=== PATIENT | female | born 1995 | race Caucasian/White ===

== ENCOUNTER 2019-10-21 20:34 | Emergency (ER) | payer SELFPAY ==
[~2019-10-21] VITALS: Ht 175 cm; Wt 104.3 kg
[~2019-10-21 20:34] MED LIST: FLINTSTONE1 TAB.CHE4 PO; PREN1TAB71 PO
[2019-10-21 20:45] VITALS: BP 122/73
[2019-10-21] MEDS ORDERED: TETANUS,DIPTH,PERTUSS P/F (BOOSTRIX) 0.5 ML VIAL IM ONE (21:00)
--- OUTSIDE RECORDS SUMMARY | 2019-10-21 21:07 | XMS REPORT ---
Author Author Meg JOLLY [facility] Address [address] [place] [address] Care Team Providers Care Eligibility And Occupancy Interviewer Name Role Phone KYRIE JOLLY Unavailable PROBLEMS Type Condition ICD9-CM Code [id number] Code Onset Dates Condition S tatus SNOMED Code Problem General counseling for prescription of oral contraceptives V25.01 Active [id number] Problem Unspecified follow-up examination V67.9 Active 512333411 Problem Other, multiple, and unspeci fied sites, insect bite, nonvenomous, infected 919.5 Active 619633869 Problem Unspecified hypothyroidism 244.9 [place] 80949545 Problem Counseling on other sexually transmitted diseases V65.45 Active 062758178 Problem Dermatophytosis of the body 110.5 Ac tive 384944284 Problem Screening examination for venereal disease V74.5 Active 572130972 Problem Cellulitis and abscess of trunk 682.2 Active 720247491 Problem Urinary tract infection, site not specified 599.0 Active 70493666 Problem Dysthymic disorder 300.4 Active 7 1866882 Problem Other and unspecified hyperlipidemia 272.4 Active [id number] ALLERGIES No Information ENCOUNTERS Encounter Location Date Diagnosis [facility] [address] [facility] [id number] [place] [address] [id number] Mar, Routine gynecological examination V72.31 ; Encounter for Papanicolaou smear for cervical cancer screening Z12.4 ; Contraceptive management Z30.9 ; Screening for STD sexually transmitted disease Z11.3 ; Vaginosis N76.0 and Oth bacterial agents as the cause of diseases classd elswhr B96.89 [facility] [address] [facility] [id number] [address] [place] [address] Sep, [facility] [address] [facility] [id number] [address] [place] [address] Sep, [facility] [address] [id number] [address] [place] [address], [place] [address] Mar, [facility] [address] [id number] [address] [place] [address], [place] [address] Mar, [facility] [address] [id number] [address] [place] [address], [place] [address] Mar, [facility] [address] [id number] [address] [place] [address], [place] [address] Mar, [facility] [address] [id number] [address] [place] [address], [place] [address] Mar, [facility] [address] [id number] [address] [place] [address], [place] [address] 29 Feb, 2014 [facility] [address] [id number] [address] [place] [address], [place] [address] 29 Feb, 2013 [facility] [address] [id number] [address] [place] [address], [place] [address] Feb, 2013 [facility] [address] [id number] [address] [place] [address], [place] [address] Feb, [facility] [address] [id number] [address] [place] [address], [place] [address] Feb, [facility] [address] [id number] [address] [place] [address], [place] [address] Feb, [facility] [address] [id number] [address] [place] [address], [place] [address] 13 Dec, 2012 [facility] [address] [id number] [address] [place] [address], [place] [address] Dec, [facility] [address] [id number] [address] [place] [address], [place] [address] Dec, [facility] [address] [id number] [place] [id number] Nov, [facility] [address] [id number] [address] [place] [address], [place] [address] 13 Nov, 2012 [facility] [address] [id number] [address] [place] [address], [place] [address] 12 Nov, 2012 [facility] [address] [id number] [address] [place] [address], [place] [address] 11 Nov, 2012 [facility] [address] [id number] [address] [place] [address], [place] [address] Sep, [facility] [address] [id number] [address] [place] [address], [place] [address] 08 Aug, 2012 [facility] [address] [id number] [address] [place] [address], [place] [address] Aug, [facility] [address] [id number] [address] [place] [address], [place] [address] 18 Feb, 2012 [facility] [address] [id number] [place] [id number] Jan, [facility] [address] [id number] [address] [place] [address] Nov, [facility] [address] [id number] [address] [place] [address], [place] [address] Nov, [facility] [address] [id number] [address] [place] [address] May, [facility] [address] [id number] [address] [place] [address], [place] [address] Apr, [facility] [address] [id number] [address] [place] [address], [place] [address] Apr, [facility] [address] [id number] [address] [place] [address], [place] [address] 04 Apr, 2011 [facility] [address] [id number] [address] [place] [address], [place] [address] 14 Sep, 2010 [facility] [address] [id number] [address] [place] [address], [place] [address] 02 May, 2010 [facility] [address] [id number] [address] [place] [address] [place] [address] Apr, IMMUNIZATIONS No Known Immunizations SOCIAL HISTORY Never Assessed REASON FOR VISIT PLAN OF CARE VITAL SIGNS Height 68 in 2014-02-28 Weight 234.19 lbs 2014-02-28 Temperature 98.3 degrees Fahrenheit 2014-02-28 Heart Rate 72 bpm 2014-02-28 Respiratory Rate 12 2014-02-28 Blood pressure systolic 106 mmHg 2014-02-28 Blood pressure diastolic 74 mmHg 2014-02-28 MEDICATIONS No Known Medications RESULTS No Results PROCEDURES Procedure Date Ordered Result Body Site DRAINAGE OF SKIN ABSCESS Feb 28, 2014 INSTRUCTIONS MEDICATIONS ADMINISTERED No Known Medications MEDICAL (GENERAL) HISTORY Type Description Date Medical History Hypothyroidism Medical History hyperlipidemia Hospitalization History childbirth 2014
--- OUTSIDE RECORDS SUMMARY | 2019-10-21 21:07 | XMS REPORT ---
Author Author Meg MADDOX NA [facility] Organization [facility] Address [address] [place] [address] Care Team Providers Care Thermocouple Tester Name Role Phone DAVID AUGUSTEMICHELA Unavailable PROBLEMS Type Condition ICD9-CM Code [id number] Code Onset Dates Condition S tatus SNOMED Code Problem General counseling for prescription of oral contraceptives V25.01 Active [id number] Problem Unspecified follow-up examination V67.9 Active 648087902 Problem Other, multiple, and unspeci fied sites, insect bite, nonvenomous, infected 919.5 Active 910802963 Problem Unspecified hypothyroidism 244.9 [place] 39787327 Problem Counseling on other sexually transmitted diseases V65.45 Active 444127199 Problem Dermatophytosis of the body 110.5 Ac tive 454695139 Problem Screening examination for venereal disease V74.5 Active 105314221 Problem Cellulitis and abscess of trunk 682.2 Active 261623540 Problem Urinary tract infection, site not specified 599.0 Active 82895650 Problem Dysthymic disorder 300.4 Active 7 4425587 Problem Other and unspecified hyperlipidemia 272.4 Active 15176110 ALLERGIES No Information ENCOUNTERS Encounter Location Date Diagnosis [facility] [address] [facility] [id number] [place] [id number] Mar, Routine gynecological examination V72.31 ; Encounter for Papanicolaou smear for cervical cancer screening Z12.4 ; Contraceptive management Z30.9 ; Screening for STD sexually transmitted disease Z11.3 ; Vaginosis N76.0 and Oth bacterial agents as the cause of diseases classd elswhr B96.89 [facility] [address] [facility] [id number] [address] [place] [address] Sep, [facility] [address] [facility] [id number] [address] [place] [address] Sep, [facility] [address] [id number] [address] [place] [address], [place] [address] Mar, [facility] [address] [id number] [address] [place] [address], [place] [address] Mar, [facility] [address] [id number] [address] [place] [address], [place] [address] Mar, [facility] [address] [id number] [address] [place] [address], [place] [address] Mar, [facility] [address] [id number] [address] [place] [address], [place] [address] Mar, [facility] [address] [id number] [address] [place] [address], [place] [address] 29 Feb, 2014 [facility] [address] [id number] [address] [place] [address], [place] [address] 29 Feb, 2013 [facility] [address] [id number] [address] [place] [address], [place] [address] 27 Feb, 2013 [facility] [address] [id number] [address] [place] [address], [place] [address] 27 Feb, 2013 [facility] [address] [id number] [address] [place] [address], [place] [address] Feb, [facility] [address] [id number] [address] [place] [phone] Feb, 2013 [facility] [address] [id number] [address] [place] [address] Dec, [facility] [address] [id number] [address] [place] [address], [place] [address] Dec, [facility] [address] [id number] [address] [place] [address], [place] [address] Dec, [facility] [place] [address] [id number] [place] [id number] Nov, [facility] [address] [id number] [address] [place] [address], [place] [address] 13 Nov, 2012 [facility] [address] [id number] [address] [place] [address], [place] [address] 12 Nov, 2012 [facility] [address] [id number] [address] [place] [address], [place] [address] 11 Nov, 2012 [facility] [address] [id number] [address] [place] [address], [place] [address] 19 Sep, 2012 [facility] [address] [id number] [address] [place] [address], [place] [address] 08 Aug, 2012 [facility] [address] [id number] [address] [place] [address], [place] [address] Aug, [facility] [address] [id number] [address] [place] [address], [place] [address] Feb, [facility] [address] [id number] [place], [facility] [id number] Jan, [facility] [address] [id number] [address] [place] [address], [place] [address] Nov, [facility] [address] [id number] [address] [place] [address], [place] [address] Nov, [facility] [address] [id number] [address] [place] [address], [place] [address] May, [facility] [address] [id number] [address] [place] [address], [place] [address] Apr, [facility] [address] [id number] [address] [place] [address], [place] [address] Apr, [facility] [address] [id number] [address] [place] [address], [place] [address] 04 Apr, 2011 [facility] [address] [id number] [address] [place] [address], [place] [address] 14 Sep, 2010 [facility] [address] [id number] [address] [place] [address], [place] [address] 02 May, 2010 [facility] [address] [id number] [address] [place] [address] Apr, IMMUNIZATIONS No Known Immunizations SOCIAL HISTORY Never Assessed REASON FOR VISIT PLAN OF CARE VITAL SIGNS Height 68 in 2014-03-09 Weight 236 lbs 2014-03-09 Temperature 98.3 degrees Fahrenheit 2014-03-09 Heart Rate 80 bpm 2014-03-09 Respiratory Rate 18 2014-03-09 Blood pressure systolic 120 mmHg 2014-03-09 Blood pressure diastolic 68 mmHg 2014-03-09 MEDICATIONS No Known Medications RESULTS No Results PROCEDURES Procedure Date Ordered Result Body Site CULTURE, BACTERIA, OTHER Mar 09, 2014 INSTRUCTIONS MEDICATIONS ADMINISTERED No Known Medications MEDICAL (GENERAL) HISTORY Type Description Date Medical History Hypothyroidism Medical History hyperlipidemia Hospitalization History childbirth 2014
--- OUTSIDE RECORDS SUMMARY | 2019-10-21 21:07 | XMS REPORT ---
Author Author Meg ORTIZ [facility] Address [address] [place] [address] Care Team Providers Care Tube Winder Name Role Phone BIBI ORTIZ Unavailable PROBLEMS Type Condition ICD9-CM Code [id number] Code Onset Dates Condition S tatus SNOMED Code Problem General counseling for prescription of oral contraceptives V25.01 Active [id number] Problem Unspecified follow-up examination V67.9 Active 114701488 Problem Other, multiple, and unspeci fied sites, insect bite, nonvenomous, infected 919.5 Active 201350105 Problem Unspecified hypothyroidism 244.9 [place] 44025704 Problem Counseling on other sexually transmitted diseases V65.45 Active 116383055 Problem Dermatophytosis of the body 110.5 Ac tive 153056706 Problem Screening examination for venereal disease V74.5 Active 401488401 Problem Cellulitis and abscess of trunk 682.2 Active 402901405 Problem Urinary tract infection, site not specified 599.0 Active 36424683 Problem Dysthymic disorder 300.4 Active 7 9000285 Problem Other and unspecified hyperlipidemia 272.4 Active [id number] ALLERGIES No Information ENCOUNTERS Encounter Location Date Diagnosis [facility] [address] [facility] [id number] [place] [id number] Mar, Routine gynecological examination V72.31 ; Encounter for Papanicolaou smear for cervical cancer screening Z12.4 ; Contraceptive management Z30.9 ; Screening for STD sexually transmitted disease Z11.3 ; Vaginosis N76.0 and Oth bacterial agents as the cause of diseases classd elswhr B96.89 [facility] [address] [facility] [id number] [address] [place] [address] Sep, [facility] [address] [facility] [id number] [address] [place] [address] Sep, [facility] [address] [id number] [address] [place] [address], [place] [address] Mar, [facility] [address] [id number] [address] [place] [address], [place] [address] Mar, [facility] [address] [id number] [address] [place] [address], [place] [address] Mar, [facility] [address] [id number] [address] [place] [address], [place] [address] Mar, [facility] [address] [id number] [address] [place] [address], [place] [address] Mar, [facility] [address] [id number] [address] [place] [address], [place] [address] 29 Feb, 2014 [facility] [address] [id number] [address] [place] [address], [place] [address] 29 Feb, 2014 [facility] [address] [id number] [address] [place] [address], [place] [address] Feb, 2013 [facility] [address] [id number] [address] [place] [address], [place] [address] Feb, [facility] [address] [id number] [address] [place] [address], [place] [address] Feb, [facility] [address] [id number] [address] [place] [address], [place] [address] Feb, [facility] [address] [id number] [address] [place] [address], [place] [address] Dec, [facility] [address] [id number] [address] [place] [address], [place] [address] Dec, [facility] [address] [id number] [address] [place] [address], [place] [address] Dec, [facility] [address] [id number] [place] [id number] Nov, [facility] [address] [id number] [place] [address] 13 Nov, 2012 [facility] [address] [id number] [address] [place] [address], [place] [address] 12 Nov, 2012 [facility] [address] [id number] [address] [place] [address], [place] [address] 11 Nov, 2012 [facility] [address] [id number] [address] [place] [address], [place] [address] 19 Sep, 2012 [facility] [address] [id number] [address] [place] [address] 08 Aug, 2012 [facility] [address] [id number] [address] [place] [address], [place] [address] Aug, [facility] [address] [id number] [address] [place] [address] 18 Feb, 2012 [facility] [address] [facility] [address] [id number] [place], [facility] [id number] Jan, [facility] [address] [id number] [address] [place] [address] Nov, [facility] [address] [id number] [address] [place] [address], [place] [address] Nov, [facility] [address] [id number] [address] [place] [address] May, [facility] [address] [id number] [address] [place] [address] Apr, [facility] [address] [id number] [address] [place] [id number] 07 Apr, 2011 [facility] [address] [id number] [address] [place] [address], [place] [address] 04 Apr, 2011 [facility] [address] [id number] [address] [place] [address], [place] [address] 14 Sep, 2010 [facility] [address] [id number] [address] [place] [address], [place] [address] 02 May, 2010 [facility] [address] [id number] [address] [place] [address] Apr, IMMUNIZATIONS No Known Immunizations SOCIAL HISTORY Never Assessed REASON FOR VISIT PLAN OF CARE VITAL SIGNS MEDICATIONS No Known Medications RESULTS No Results PROCEDURES No Known procedures INSTRUCTIONS MEDICATIONS ADMINISTERED No Known Medications MEDICAL (GENERAL) HISTORY Type Description Date Medical History Hypothyroidism Medical History hyperlipidemia Hospitalization History childbirth 2014
--- OUTSIDE RECORDS SUMMARY | 2019-10-21 21:07 | XMS REPORT ---
Author Author Ivan Meg Doctor Organization [facility] Address Unknown Phone Unavailable Care Team Providers Care Assurance Engineer Name Role Phone Migration, Doctor Unavailable Unavailable PROBLEMS Type Condition ICD9-CM Code XOK98-MD Code Onset Dates Condition S tatus SNOMED Code Problem General counseling for prescription of oral contraceptives V25.01 Active [id number] Problem Unspecified follow-up examination V67.9 Active 131656628 Problem Other, multiple, and unspeci fied sites, insect bite, nonvenomous, infected 919.5 Active 477388430 Problem Unspecified hypothyroidism 244.9 [place] 73055523 Problem Counseling on other sexually transmitted diseases V65.45 Active 943697856 Problem Dermatophytosis of the body 110.5 Ac tive 130030429 Problem Screening examination for venereal disease V74.5 Active 037930127 Problem Cellulitis and abscess of trunk 682.2 Active 551711052 Problem Urinary tract infection, site not specified 599.0 Active 37324247 Problem Dysthymic disorder 300.4 Active 7 4285994 Problem Other and unspecified hyperlipidemia 272.4 Active 98821009 ALLERGIES No Information ENCOUNTERS Encounter Location Date Diagnosis [facility] [address] [facility] [id number] [place] [address] [id number] 29 Mar, 2015 Routine gynecological examination V72.31 ; Encounter for Papanicolaou smear for cervical cancer screening Z12.4 ; Contraceptive management Z30.9 ; Screening for STD sexually transmitted disease Z11.3 ; Vaginosis N76.0 and Oth bacterial agents as the cause of diseases classd elswhr B96.89 [facility] [address] [facility] [id number] [address] [place] [address] 14 Sep, 2014 [facility] [address] [facility] [id number] [address] [place] [address] Sep, [facility] [address] [facility] [id number] [address] [place] [address] Mar, [facility] [address] [id number] [address] [place] [address], [place] [address] Mar, [facility] [address] [id number] [address] [place] [address], [place] [address] Mar, [facility] [address] [id number] [address] [place] [address], [place] [address] Mar, [facility] [address] [id number] [address] [place] [address], [place] [address] Mar, [facility] [address] [id number] [address] [place] [address], [place] [address] Feb, [facility] [address] [id number] [address] [place] [address], [place] [address] 29 Feb, 2014 [facility] [address] [id number] [address] [place] [address], [place] [address] Feb, [facility] [address] [id number] [address] [place] [address], [place] [address] Feb, [facility] [address] [id number] [address] [place] [address], [place] [address] Feb, [facility] [address] [id number] [address] [place] [address], [place] [address] Feb, [facility] [address] [id number] [address] [place] [address], [place] [address] Dec, [facility] [address] [id number] [address] [place] [address], [place] [address] Dec, [facility] [address] [id number] [address] [place] [address], [place] [address] Dec, [facility] [address] [id number] [place] [id number] 17 Nov, 2012 [facility] [address] [id number] [address] [place] [address], [place] [address] 13 Nov, 2012 [facility] [address] [id number] [address] [place] [address] Nov, [facility] [address] [id number] [address] [place] [address] Nov, [facility] [address] [id number] [address] [place] [address] Sep, [facility] [address] [id number] [address] [place] [address] Aug, [facility] [address] [id number] [address] [place] [address] Aug, [facility] [address] [id number] [address] [place] [address] Feb, [place] [address] [id number] [place] [id number] Jan, [facility] [address] [id number] [address] [place] [address] Nov, [facility] [address] [id number] [address] [place] [address] Nov, [facility] [address] [id number] [address] [place] [address] May, [facility] [address] [id number] [address] [place] [address] Apr, [facility] [address] [id number] [address] [place] [address] Apr, [facility] [address] [id number] [address] [place] [address] Apr, [facility] [address] [id number] [address] [place] [address] 14 Sep, 2010 [facility] [address] [id number] [address] [place] [address] May, [facility] [address] [id number] [address] [place] [address] Apr, IMMUNIZATIONS No Known Immunizations SOCIAL HISTORY Never Assessed REASON FOR VISIT PLAN OF CARE VITAL SIGNS Height 68 in 2011-11-16 Weight 223.5 lbs 2011-11-16 Temperature 96 degrees Fahrenheit 2011-11-16 Heart Rate 80 bpm 2011-11-16 Respiratory Rate 20 2011-11-16 Blood pressure systolic 128 mmHg 2011-11-16 Blood pressure diastolic 70 mmHg 2011-11-16 MEDICATIONS No Known Medications RESULTS No Results PROCEDURES Procedure Date Ordered Result Body Site CHYLMD TRACH, DNA, AMP PROBE November 16, 2011 GLYCATED HEMOGLOBIN TEST November 16, 2011 URINE TEST November 16, 2011 INSTRUCTIONS MEDICATIONS ADMINISTERED No Known Medications MEDICAL (GENERAL) HISTORY Type Description Date Medical History Hypothyroidism Medical History hyperlipidemia Hospitalization History childbirth 2014
--- OUTSIDE RECORDS SUMMARY | 2019-10-21 21:07 | XMS REPORT ---
Author Author Meg JOLLY [facility] Address [address] [place] [address] Care Team Providers Care Contractor Buyer Name Role Phone KYRIE JOLLY Unavailable PROBLEMS Type Condition ICD9-CM Code IKO84-MC Code Onset Dates Condition S tatus SNOMED Code Problem General counseling for prescription of oral contraceptives V25.01 Active [id number] Problem Unspecified follow-up examination V67.9 Active 978293588 Problem Other, multiple, and unspeci fied sites, insect bite, nonvenomous, infected 919.5 Active 321309630 Problem Unspecified hypothyroidism 244.9 [place] 45894323 Problem Counseling on other sexually transmitted diseases V65.45 Active 790516634 Problem Dermatophytosis of the body 110.5 Ac tive 218016587 Problem Screening examination for venereal disease V74.5 Active 505133981 Problem Cellulitis and abscess of trunk 682.2 Active 881481812 Problem Urinary tract infection, site not specified 599.0 Active 24385332 Problem Dysthymic disorder 300.4 Active 7 1690185 Problem Other and unspecified hyperlipidemia 272.4 Active 46730495 ALLERGIES No Information ENCOUNTERS Encounter Location Date Diagnosis [facility] [address] [facility] [id number] [place] [id number] Mar, Routine gynecological examination V72.31 ; Encounter for Papanicolaou smear for cervical cancer screening Z12.4 ; Contraceptive management Z30.9 ; Screening for STD sexually transmitted disease Z11.3 ; Vaginosis N76.0 and Oth bacterial agents as the cause of diseases classd elswhr B96.89 [facility] [address] [facility] [id number] [address] [place] [address] Sep, [facility] [address] [facility] [id number] [address] [place] [address] Sep, [facility] [address] [id number] [address] [place] [address], [place] [address] Mar, [facility] [address] [id number] [address] [place] [address], [place] [address] Mar, [facility] [address] [id number] [address] [place] [address], [place] [address] Mar, [facility] [address] [id number] [address] [place] [address], [place] [address] Mar, [facility] [address] [id number] [address] [place] [address], [place] [address] Mar, [facility] [address] [id number] [address] [place] [address], [place] [address] 29 Feb, 2014 [facility] [address] [id number] [address] [place] [address], [place] [address] 29 Feb, 2013 [facility] [address] [id number] [address] [place] [address], [place] [address] Feb, 2013 [facility] [address] [id number] [address] [place] [address], [place] [address] Feb, [facility] [address] [id number] [address] [place] [address], [place] [address] Feb, [facility] [address] [id number] [address] [place] [address], [place] [address] Feb, [facility] [address] [id number] [address] [place] [address], [place] [address] 13 Dec, 2012 [facility] [address] [id number] [address] [place] [address], [place] [address] Dec, [facility] [address] [id number] [address] [place] [address], [place] [address] Dec, [facility] [address] [id number] [place] [id number] Nov, [facility] [address] [id number] [address] [place] [address], [place] [address] 13 Nov, 2012 [facility] [address] [id number] [address] [place] [address], [place] [address] 12 Nov, 2012 [facility] [address] [id number] [address] [place] [address], [place] [address] 11 Nov, 2012 [facility] [address] [id number] [address] [place] [address], [place] [address] Sep, [facility] [address] [id number] [address] [place] [address], [place] [address] 08 Aug, 2012 [facility] [address] [id number] [address] [place] [address], [place] [address] Aug, [facility] [address] [id number] [address] [place] [address], [place] [address] 18 Feb, 2012 [facility] [address] [id number] [place] [id number] Jan, [facility] [address] [id number] [address] [place] [address] Nov, [facility] [address] [id number] [address] [place] [address], [place] [address] Nov, [facility] [address] [id number] [address] [place] [address] May, [facility] [address] [id number] [address] [place] [address], [place] [address] Apr, [facility] [address] [id number] [address] [place] [address], [place] [address] Apr, [facility] [address] [id number] [address] [place] [address], [place] [address] 04 Apr, 2011 [facility] [address] [id number] [address] [place] [address], [place] [address] 14 Sep, 2010 [facility] [address] [id number] [address] [place] [address], [place] [address] 02 May, 2010 [facility] [address] [id number] [address] [place] [address] [place] [address] Apr, IMMUNIZATIONS No Known Immunizations SOCIAL HISTORY Never Assessed REASON FOR VISIT PLAN OF CARE VITAL SIGNS MEDICATIONS No Known Medications RESULTS No Results PROCEDURES Procedure Date Ordered Result Body Site COMPLETE CBC W/AUTO DIFF WBC December 13, 2012 ASSAY THYROID STIM HORMONE December 13, 2012 GLYCATED HEMOGLOBIN TEST December 13, 2012 LIPID PANEL December 13, 2012 COMPREHEN METABOLIC PANEL December 13, 2012 VENIPUNCT, ROUTINE* December 13, 2012 INSTRUCTIONS MEDICATIONS ADMINISTERED No Known Medications MEDICAL (GENERAL) HISTORY Type Description Date Medical History Hypothyroidism Medical History hyperlipidemia Hospitalization History childbirth 2014
--- NOTE | 2019-10-21 21:08 | ED Upper Extremity ---
General Chief Complaint: Laceration Stated Complaint: R INDEX FINGER LAC Nursing Triage Note: PATIENT STATES AT 2014 SHE WAS ATTEMPTING TO OPEN A ZIP TIE WITH A STEAK KNIFE AND FUT HER RIGHT 2ND FINGER. Nursing Sepsis Screen: No Definite Risk History of Present Illness Date Seen by Provider: October 21, 2019 Time Seen by Provider: 20:50 Initial Comments 24-year-old female was cutting a zip tie with a steak knife when she caused an abrasion to her right second finger over the middle phalanx. She reports significant bleeding and came here. Has washed it thoroughly. Onset: just prior to arrival Pain/Injury Location: right 2nd finger Method of Injury: incised Modifying Factors: Improves With Rest Allergies and Home Medications Allergies Coded Allergies: No Known Drug Allergies (Unverified , 10/21/19) Home Medications Multivitamins W-Iron 1 Tab.chew Tab.chew, 1 TAB.CHEW PO DAILY, (Reported) Patient Home Medication List Home Medication List Reviewed: Yes Review of Systems Constitutional: no symptoms reported, see HPI Skin: see HPI, other (abrasion right index finger) All Other Systems Reviewed Negative Unless Noted: Yes Past Qsmcsgt-Dwolbj-Dbaetl Hx Past Med/Social Hx: Reviewed Nursing Past Med/Soc Hx Patient Social History Alcohol Use: Denies Use Recreational Drug Use: No Smoking Status: Current Everyday Smoker Recent Foreign Travel: No Contact w/Someone Who Travel: No Recent Infectious Disease Expo: No Recent Hopitalizations: No Physical Abuse: No Sexual Abuse: No Mistreated: No Fear: No Immunizations Up To Date Tetanus Booster (TDap): More than 5yrs PED Vaccines UTD: Yes Date of Influenza Vaccine: Mar 04, 2014 Seasonal Allergies Seasonal Allergies: No Past Medical History Surgeries: Yes Section, Gallbladder Respiratory: Yes Asthma Cardiac: No Neurological: No : No Last Menstrual Period: October 20, 2019 Genitourinary: No Gastrointestinal: No Musculoskeletal: No Endocrine: Yes Hypothyroidsim HEENT: No Cancer: No Anxiety Integumentary: No Physical Exam Vital Signs Vital Signs - First Documented 10/21/19 20:45 Temp 36.0 Pulse 82 Resp 18 B/P (MAP) 122/73 (89) O2 Delivery Room Air Capillary Refill : Less Than 3 Seconds Height, Weight, BMI Height: 5'8.00" Weight: 229lbs. oz. 103.596482sw; 34.00 BMI Method: General Appearance: WD/WN, no apparent distress Cardiovascular: normal peripheral pulses, regular rate, rhythm Respiratory: chest non-tender, lungs clear, normal breath sounds Gastrointestinal: normal bowel sounds, non tender, soft Hand: normal ROM (Resisted flex/ext V/V), Right, abrasions (dorsum, right index finger over the middle phalanx, no bleeding. ) Neurologic/Tendon: normal sensation, normal motor functions, normal tendon functions Neurologic/Psychiatric: no motor/sensory deficits, alert, normal mood/affect, oriented x 3 Skin: normal color, warm/dry Progress/Results/Core Measures Results/Orders My Orders Orders - YUSEF GERMAN Dipht,Pertuss(Acell),Tet Adult (Boostrix (10/21/19 21:00) Vital Signs/I&O 10/21/19 20:45 Temp 36.0 Pulse 82 Resp 18 B/P (MAP) 122/73 (89) O2 Delivery Room Air Blood Pressure Mean: 89 Progress Progress Note : Time: 20:50 Progress Note Patient seen and evaluated, wound irrigated with soap and water. Thoroughly dried and Steri-Strips in place. Wound well approximated with no bleeding. Discharge instructions and return precautions reviewed. Departure Impression Primary Impression: Abrasion of right index finger Qualified Codes: S60.410A - Abrasion of right index finger, initial encounter Disposition: 01 HOME, SELF-CARE Condition: Improved Departure-Patient Inst. Decision time for Depature: 21:05 Referrals: [facility] [place],LOCAL PHYSICIAN (PCP) Primary Care Physician Patient Instructions: Skin Abrasions (DC) Add. Discharge Instructions: Keep wound clean and dry for 24 hours. Reapply Steri-Strips as needed. After 24 hours you May cover with a Band-Aid. Follow-up with your primary care provider if symptoms are not improving or worsen. Return to the emergency department for new, urgent health care problems. All discharge instructions reviewed with patient and/or family. Voiced understanding. YUSEF GERAMN October 21, 2019 21:08
--- OUTSIDE RECORDS SUMMARY | 2019-10-21 21:08 | XMS REPORT ---
Author Meg Centeno [facility] eClinicalWorks Address Unknown Phone Unavailable Care Team Providers Care Cad Designer Drafter Name Role Phone LANE VELIZ Unavailable Allergies, Adverse Reactions, Alerts Substance Reaction Event Type N.K.D.A. Info Not Available Non Drug Allergy Problems Problem Type Condition Code Onset Dates Condition Statu s Problem Unspecified hypothyroidism 244.9 A ctive Problem Cellulitis and abscess of trunk 682.2 Active Problem Other and unspecified hyperlipidemia 272.4 Active Problem Unspecified follow-up examination V67.9 Active Problem Counseling on other sexually transmitted diseases V65. 45 Active Problem Urinary tract infection, site not specified 599.0 Active Problem Dysthymic disorder 300.4 Active Problem Dermatophytosis of the body 110.5 Active Problem General counseling for prescription of oral contracept noel V25.01 Active Problem Screening examination for venereal disease V74.5 Active Assessment Oth bacterial agents as the cause of diseases classd e lswhr B96.89 Active Assessment Contraceptive management Z30.9 [place] Assessment Encounter for Papanicolaou smear for cervical ca ncer screening Z12.4 Active Assessment Vaginosis N76.0 Active Assessment Routine gynecological examination V72.31 Active Assessment Screening for STD (sexually transmitted disease) Z11.3 Active Problem Other, multiple, and unspeci fied sites, insect bite, nonvenomous, infected 919.5 Active Medications Medication Code System Code Instructions Start Date End Date Status Dosage Levothyroxine Sodium [facility] [address]-80 112 MCG Orally Once a day 1 tablet NuvaRing [facility] [address]-17 0.12-0.015 MG/24 HR Vaginal for 3 weeks then remove ring for 1 week Apr 01, 2015 1 ring Flagyl [facility] [address]-51 500 MG Orally every 8 hrs Apr 01, 2015 Apr 08, 2015 1 tablet Procedures Procedure Coding System Code Date CULTURE, BACTERIA, OTHER CPT-4 40348 Apr 01, 2015 SPECIMEN HANDLING CPT-4 80061 Apr 01, 2015 No Charge CPT-4 71152 Apr 01, 2015 URINE TEST CPT-4 90668 Apr 01, 201 5 TRICHOMONAS VAGIN, DIR PROBE CPT-4 40211 Apr 01, 2015 Preventive Care New Pt. Age 18-39 CPT-4 35914 Apr 01, 2015 Vital Signs Date/Time: Apr 01, 2015 Temperature 98.1 F Weight 221.6 lbs Height 68 in BMI 33.69 Index Blood Pressure Diastolic 86 mmHg Blood Pressure Systolic 116 mmHg Cardiac Monitoring Heart Rate 88 bpm Results Name Result Date Reference Range Unit Abnormali ty Flag GC/CHLAM PROBE (STATE) TEST, URINE (IN HOUSE) CULTURE, GENITAL Summary Purpose eClinicalWorks Submission
--- OUTSIDE RECORDS SUMMARY | 2019-10-21 21:08 | XMS REPORT ---
Author Author Meg MADDOX NA [facility] Organization [facility] Address [address] [place] [address] Care Team Providers Care It Project Manager Name Role Phone DAVID AUGUSTEMICHELA Unavailable PROBLEMS Type Condition ICD9-CM Code GSW24-QT Code Onset Dates Condition S tatus SNOMED Code Problem General counseling for prescription of oral contraceptives V25.01 Active 853455983389450 Problem Unspecified follow-up examination V67.9 Active 981385205 Problem Other, multiple, and unspeci fied sites, insect bite, nonvenomous, infected 919.5 Active 584992125 Problem Unspecified hypothyroidism 244.9 [place] 35120336 Problem Counseling on other sexually transmitted diseases V65.45 Active 727227326 Problem Dermatophytosis of the body 110.5 Ac tive 177476684 Problem Screening examination for venereal disease V74.5 Active 243701729 Problem Cellulitis and abscess of trunk 682.2 Active 198683937 Problem Urinary tract infection, site not specified 599.0 Active 50934246 Problem Dysthymic disorder 300.4 Active 7 5623376 Problem Other and unspecified hyperlipidemia 272.4 Active 80806223 ALLERGIES No Information ENCOUNTERS Encounter Location Date Diagnosis [facility] [address] [id number] [id number] Mar, Routine gynecological examination V72.31 ; Encounter for Papanicolaou smear for cervical cancer screening Z12.4 ; Contraceptive management Z30.9 ; Screening for STD sexually transmitted disease Z11.3 ; Vaginosis N76.0 and Oth bacterial agents as the cause of diseases classd elswhr B96.89 [facility] [address] [facility] [id number] [address] [place] [address] Sep, [facility] [address] [facility] [id number] [address] [place] [address] Sep, [facility] [address] [id number] [address] [place] [address], [place] [address] Mar, [facility] [address] [id number] [address] [place] [address], [place] [address] Mar, [facility] [address] [id number] [address] [place] [address], [place] [address] Mar, [facility] [address] [id number] [address] [place] [address] Mar, [facility] [address] [id number] [address] [place] [address], [place] [address] Mar, [facility] [address] [id number] [address] [place] [address] 29 Feb, 2014 [facility] [address] [id number] [address] [place] [address], [place] [address] 29 Feb, 2014 [facility] [address] [id number] [address] [place] [address], [place] [address] 27 Feb, 2014 [facility] [address] [id number] [address] [place] [address], [place] [address] Feb, [facility] [address] [id number] [address] [place] [address], [place] [address] Feb, [facility] [address] [id number] [address] [place] [address] Feb, 2013 [facility] [address] [id number] [address] [place] [address] Dec, [facility] [address] [id number] [address] [place] [address] Dec, [facility] [address] [id number] [address] [place] [address] Dec, [facility] [address] [id number] [place] [id number] Nov, [facility] [address] [id number] [address] [place] [address], [place] [address] 13 Nov, 2012 [facility] [address] [id number] [address] [place] [address], [place] [address] 12 Nov, 2012 [facility] [address] [id number] [address] [place] [address], [place] [address] 11 Nov, 2012 [facility] [address] [id number] [address] [place] [address], [place] [address] 19 Sep, 2012 [facility] [address] [id number] [address] [place] [address], [place] [address] 08 Aug, 2012 [facility] [address] [id number] [address] [place] [address], [place] [address] 05 Aug, 2012 [facility] [address] [id number] [address] [place] [address], [place] [address] 18 Feb, [address] [facility] [address] [id number] [place], [facility] [id number] Jan, [facility] [address] [id number] [address] [place] [address], [place] [address] Nov, [facility] [address] [id number] [address] [place] [address], [place] [address] 14 Nov, 2011 [facility] [address] [id number] [address] [place] [address], [place] [address] May, [facility] [address] [id number] [address] [place] [address], [place] [address] 23 Apr, 2011 [facility] [address] [id number] [address] [place] [address], [place] [address] Apr, [facility] [address] [id number] [address] [place] [address], [place] [address] 04 Apr, 2011 [facility] [address] [id number] [address] [place] [address], [place] [address] 14 Sep, 2010 [facility] [address] [id number] [address] [place] [address], [place] [address] 02 May, 2010 [facility] [address] [facility] [id number] [address] [place] [address] Apr, IMMUNIZATIONS No Known Immunizations SOCIAL HISTORY Never Assessed REASON FOR VISIT PLAN OF CARE VITAL SIGNS Height 68 in 2014-03-02 Weight 233.3 lbs 2014-03-02 Temperature 97.9 degrees Fahrenheit 2014-03-02 Heart Rate 74 bpm 2014-03-02 Respiratory Rate 16 2014-03-02 Blood pressure systolic 108 mmHg 2014-03-02 Blood pressure diastolic 66 mmHg 2014-03-02 MEDICATIONS No Known Medications RESULTS No Results PROCEDURES No Known procedures INSTRUCTIONS MEDICATIONS ADMINISTERED No Known Medications MEDICAL (GENERAL) HISTORY Type Description Date Medical History Hypothyroidism Medical History hyperlipidemia Hospitalization History childbirth 2014
--- OUTSIDE RECORDS SUMMARY | 2019-10-21 21:08 | XMS REPORT | Continuity of Care Document ---
Author Organization Unknown Address Unknown Phone Unavailable Allergies There is no data. Medications There is no data. Problems Date Dx Coded Attending Type Code Diagnosis Diagnosed By 01/04/2009 V25.9 Gyne cologic Services Contraceptive Management 01/04/2009 V72.31 Pel judith Exam (Internal) 01/04/2009 V25.9 Gyne cologic Services Contraceptive Management 01/04/2009 V72.31 Pel judith Exam (Internal) 01/04/2009 V25.9 Gyne cologic Services Contraceptive Management 01/04/2009 V72.31 Pel judith Exam (Internal) 01/04/2009 KYRIE JOLLY APRN V2 5.9 Gynecologic Services Contraceptive Management 01/04/2009 KYRIE JOLLY APRN V72.31 Pelvic Exam (Internal) 01/04/2009 ARIC PEREZ DO V25.9 Gynecologic Services Contraceptive Management 01/04/2009 ARIC PEREZ DO V72.31 Pelvic Exam (Internal) 01/04/2009 MICHELA CASTILLO APRN N V25.9 Gynecologic Services Contraceptive Management 01/04/2009 MICHELA CASTILLO APRN N V72.31 Pelvic Exam (Internal) 01/04/2009 ARIC PEREZ DO V25.9 Gynecologic Services Contraceptive Management 01/04/2009 ARIC PEREZ DO V72.31 Pelvic Exam (Internal) 02/04/2010 V25.02 GEN ERAL COUNSELING AND ADVICE, INITIATION OF OTHER CONTRACEPTIVE MEASURES 02/04/2010 V25.40 vis it for: contraceptive surveillance 02/04/2010 V25.02 GEN ERAL COUNSELING AND ADVICE, INITIATION OF OTHER CONTRACEPTIVE MEASURES 02/04/2010 V25.40 vis it for: contraceptive surveillance 02/04/2010 V25.02 GEN ERAL COUNSELING AND ADVICE, INITIATION OF OTHER CONTRACEPTIVE MEASURES 02/04/2010 V25.40 vis it for: contraceptive surveillance 02/04/2010 KYRIE JOLLY APRN V25.02 GENERAL COUNSELING AND ADVICE, INITIATIO N OF OTHER CONTRACEPTIVE MEASURES 02/04/2010 KYRIE JOLLY APRN L V25.40 visit for: contraceptive surveillance 02/04/2010 ANTHONY PEREZ DOA K V25.02 GENERAL COUNSELING AND ADVICE, INITIATION OF OTHER CONTRACEPTIVE MEASURES 02/04/2010 ANTHONY PEREZ DOA K V25.40 visit for: contraceptive surveillance 02/04/2010 HOWARDMICHELA ATKINS APRN N V25.02 GENERAL COUNSELING AND ADVICE, INITIATIO N OF OTHER CONTRACEPTIVE MEASURES 02/04/2010 MICHELA CASTILLO APRN N V25.40 visit for: contraceptive surveillance 02/04/2010 ANTHONY PEREZ DOA K V25.02 GENERAL COUNSELING AND ADVICE, INITIATION OF OTHER CONTRACEPTIVE MEASURES 02/04/2010 ANTHONY PEREZ DOA K V25.40 visit for: contraceptive surveillance 04/07/2011 278.00 OBESITY 04/07/2011 300.00 anxiety 04/07/2011 493.90 AST HMA EXERCISE- INDUCED 04/07/2011 278.00 OBESITY 04/07/2011 300.00 anxiety 04/07/2011 493.90 AST HMA EXERCISE- INDUCED 04/07/2011 278.00 OBESITY 04/07/2011 300.00 anxiety 04/07/2011 493.90 AST HMA EXERCISE- INDUCED 04/07/2011 EATCHRISTI AGUDELO, KYRIE L 278.00 OBESITY 04/07/2011 SHANAE AGUDELO, KYRIE L 300.00 anxiety 04/07/2011 SHANAE AGUDELO, KYRIE L 493.90 ASTHMA EXERCISE-INDUCED 04/07/2011 PEREZ DO ARIC K 278.00 OBESITY 04/07/2011 ANA GONZALEZ ARIC K 300.00 anxiety 04/07/2011 ANA GONZALEZ ARIC K 493.90 ASTHMA EXERCISE-INDUCED 04/07/2011 ANITA AUGUSTE APRN MICHELA N 278.00 OBESITY 04/07/2011 ANITA AUGUSTE APRN MICHELA N 300.00 anxiety 04/07/2011 ANITA ROLONERO JAMMIE, MICHELA N 493.90 ASTHMA EXERCISE-INDUCED 04/07/2011 ANA GONZALEZ ARIC K 278.00 OBESITY 04/07/2011 PEREZ DO ARIC K 300.00 anxiety 04/07/2011 PEREZ DO ARIC K 493.90 ASTHMA EXERCISE-INDUCED 11/16/2011 V25.01 CON TRACEPTION - ORAL CONTRACEPTION 11/16/2011 V74.5 STD SCREEN 11/16/2011 V25.01 CON TRACEPTION - ORAL CONTRACEPTION 11/16/2011 V74.5 STD SCREEN 11/16/2011 V25.01 CON TRACEPTION - ORAL CONTRACEPTION 11/16/2011 V74.5 visi t for: screening exam bact/spirochetal STD 11/16/2011 KYRIE JOLLY APRN V25.01 CONTRACEPTION - ORAL CONTRACEPTION 11/16/2011 KYRIE JOLLY APRN V7 4.5 visit for: screening exam bact/spirochetal STD 11/16/2011 ARIC PEREZ DO K V25.01 CONTRACEPTION - ORAL CONTRACEPTION 11/16/2011 ARIC PEREZ DO V74.5 visit for: screening exam bact/spirochetal STD 11/16/2011 MICHELA CASTILLO APRN N V25.01 CONTRACEPTION - ORAL CONTRACEPTION 11/16/2011 MICHELA CASTILLO APRN V74.5 visit for: screening exam bact/spirochetal STD 11/16/2011 ARCI PEREZ DO V25.01 CONTRACEPTION - ORAL CONTRACEPTION 11/16/2011 ARIC PEREZ DO V74.5 visit for: screening exam bact/spirochetal STD 02/20/2012 300.4 DEPR ESSION WITH ANXIETY 02/20/2012 300.4 DEPR ESSION WITH ANXIETY 02/20/2012 300.4 DEPR ESSION WITH ANXIETY 02/20/2012 KYRIE JOLLY APRN 30 0.4 DEPRESSION WITH ANXIETY 02/20/2012 ARIC PEREZ DO K 300.4 DEPRESSION WITH ANXIETY 02/20/2012 MICHELA CASTILLO APRN N 300.4 DEPRESSION WITH ANXIETY 02/20/2012 ARIC PEREZ DO K 300.4 DEPRESSION WITH ANXIETY 08/06/2012 599.0 URIN JESSIE TRACT INFECTION 08/06/2012 599.0 URIN JESSIE TRACT INFECTION 08/06/2012 599.0 URIN JESSIE TRACT INFECTION 08/06/2012 KYRIE JOLLY APRN 59 9.0 URINARY TRACT INFECTION 08/06/2012 ARIC PEREZ DO 599.0 URINARY TRACT INFECTION 08/06/2012 MICHELA CASTILLO APRN N 599.0 URINARY TRACT INFECTION 08/06/2012 ARIC PEREZ DO 599.0 URINARY TRACT INFECTION 09/20/2012 110.5 DERM ATOPHYTOSIS TINEA CORPORIS 09/20/2012 110.5 DERM ATOPHYTOSIS TINEA CORPORIS 09/20/2012 KYRIE JOLLY APRN 11 0.5 DERMATOPHYTOSIS TINEA CORPORIS 09/20/2012 ARIC PEREZ DO K 110.5 DERMATOPHYTOSIS TINEA CORPORIS 09/20/2012 MICHELA CASTILLO APRN N 110.5 DERMATOPHYTOSIS TINEA CORPORIS 09/20/2012 ANTHONY PEREZ DOA K 110.5 DERMATOPHYTOSIS TINEA CORPORIS 11/13/2012 V65.45 STD COUNSELING 11/13/2012 KYRIE JOLLY APRN L V65.45 STD COUNSELING 11/13/2012 ANTHONY PEREZ DOA K V65.45 STD COUNSELING 11/13/2012 MICHELA CASTILLO APRN N V65.45 STD COUNSELING 11/13/2012 ANTHONY PEREZ DOA K V65.45 STD COUNSELING 02/28/2014 ARIC PEREZ DO K 244.9 HYPOTHYROIDISM, SUBCLINICAL 02/28/2014 ARIC PEREZ DO K 272.4 HYPERLIPIDEMIA 02/28/2014 ANTHONY PEREZ DOA K 682.2 CELLULITIS AND ABSCESS OF TRUNK 02/28/2014 MICHELA CASTILLO APRN N 244.9 HYPOTHYROIDISM, SUBCLINICAL 02/28/2014 RYAN CASTILLO APRNCY N 272.4 HYPERLIPIDEMIA 02/28/2014 RYAN CASTILLO APRNCY N 682.2 CELLULITIS AND ABSCESS OF TRUNK 02/28/2014 ANTHONY PEREZ DOA K 244.9 HYPOTHYROIDISM, SUBCLINICAL 02/28/2014 ANTHONY PEREZ DOA K 272.4 HYPERLIPIDEMIA 02/28/2014 ANTHONY PEREZ DOA K 682.2 CELLULITIS AND ABSCESS OF TRUNK 03/02/2014 RYAN CASTILLO APRNCY N 919.5 INSECT BITE NONVENOMOUS OF OTHER MULTIPL E AND UNSPECIFIED SITES INFECTED 03/02/2014 ARIC PEREZ DO K 919.5 INSECT BITE NONVENOMOUS OF OTHER MULTIPLE AND UNSPECIFIED SITES INFECTED 03/09/2014 ARIC PEREZ DO K V67.9 UNSPECIFIED FOLLOW-UP EXAMINATION Procedures Code Description [place] [address] UA L SELENE DIP 08/06/2012 25898 CULT URE URINE 08/06/2012 46816 URIN E TEST (IN- HOUSE) 11/13/2012 27588 TRIC HOMONAS (IN-HOUSE) 11/13/2012 48446 CHLA MYDIA PROBE/URINE 11/13/2012 17007 GC P ROBE/URINE 11/13/2012 43119 MARYAM LOMELI OF SKIN ABSCESS 02/28/2014 70016 CULT URE WOUND (AEROBIC) 03/10/2014 Results There is no data. Encounters ACCT No. Visit Date/Time Discharge Status Pt. Type Provider Facility Loc./Unit Complaint [id number] 03/09/2014 15:28:00 03/09/2014 23:59: 59 CLS Outpatient ARIC PEREZ DO [id number] 03/02/2014 13:53:00 03/02/2014 23:59: 59 CLS Outpatient MICHELA CASTILLO APRN [id number] 02/28/2014 13:04:00 02/28/2014 23:59: 59 CLS Outpatient ARIC PEREZ DO [id number] 12/12/2012 15:37:00 12/12/2012 23:59: 59 CLS Outpatient KYRIE JOLLY APRN [id number] 08/06/2012 15:23:00 08/06/2012 23:59: 59 CLS Outpatient [id number] 11/13/2012 08:31:00 Document Registration [id number] 09/20/2012 15:43:00 Document Registration
--- OUTSIDE RECORDS SUMMARY | 2019-10-21 21:08 | XMS REPORT ---
Author Author Ivan Meg Doctor Organization [facility] Address Unknown Phone Unavailable Care Team Providers Care Typecasting Machine Operator Name Role Phone Migration, Doctor Unavailable Unavailable PROBLEMS Type Condition ICD9-CM Code DTG17-QD Code Onset Dates Condition S tatus SNOMED Code Problem General counseling for prescription of oral contraceptives V25.01 Active 456834882101995 Problem Unspecified follow-up examination V67.9 Active 577354744 Problem Other, multiple, and unspeci fied sites, insect bite, nonvenomous, infected 919.5 Active 865790978 Problem Unspecified hypothyroidism 244.9 Act [place] 25208687 Problem Counseling on other sexually transmitted diseases V65.45 Active 096144144 Problem Dermatophytosis of the body 110.5 Ac tive 834661769 Problem Screening examination for venereal disease V74.5 Active 054120070 Problem Cellulitis and abscess of trunk 682.2 Active 934997592 Problem Urinary tract infection, site not specified 599.0 Active 24718385 Problem Dysthymic disorder 300.4 Active 7 4848496 Problem Other and unspecified hyperlipidemia 272.4 Active 40405062 ALLERGIES No Information ENCOUNTERS Encounter Location Date Diagnosis [facility] [address] [facility][1] [id number] [place] [id number] Mar, Routine gynecological examination V72.31 ; Encounter for Papanicolaou smear for cervical cancer screening Z12.4 ; Contraceptive management Z30.9 ; Screening for STD sexually transmitted disease Z11.3 ; Vaginosis N76.0 and Oth bacterial agents as the cause of diseases classd elswhr B96.89 [facility] [address] [facility] [id number] [address] [place] [phone] Sep, [facility] [address] [facility] [id number] [address] [place] [phone] Sep, [facility] [address] [facility] [id number] [address] [place] [phone] Mar, [facility] [address] [id number] [address] [place] [address], [place] [address] Mar, [facility] [address] [id number] [address] [place] [address], [place] [address] Mar, [facility] [address] [id number] [address] [place] [address], [place] [address] Mar, [facility] [address] [id number] [address] [place] [address], [place] [address] Mar, [facility] [address] [id number] [address] [place] [address], [place] [address] Feb, [facility] [address] [id number] [address] [place] [address], [place] [phone] 29 Feb, 2014 [facility] [address] [id number] [address] [place] [address], [place] [address] Feb, [facility] [address] [id number] [address] [place] [address], [place] [phone] Feb, [facility] [address] [id number] [address] [place] [address], [place] [address] Feb, [facility] [address] [id number] [address] [place] [address], [place] [phone] Feb, [facility] [address] [id number] [address] [place] [address], [place] [address] Dec, [facility] [address] [id number] [address] [place] [phone] Dec, [facility] [address] [id number] [address] [place] [address], [place] [address] Dec, [facility] [address] [id number] [place] [id number] Nov, [facility] [address] [id number] [address] [place] [phone] 13 Nov, 2012 [facility] [address] [id number] [address] [place] [phone] Nov, [facility] [address] [id number] [address] [place] [phone] Nov, [facility] [address] [id number] [address] [place] [phone] Sep, [facility] [address] [id number] [address] [place] [phone] Aug, [facility] [address] [id number] [address] [place] [phone] 05 Aug, 2012 [facility] [address] [id number] [address] [place] [phone] Feb, [facility] [address] [id number] [place] [id number] Jan, [facility] [address] [id number] [address] [place] [phone] Nov, [facility] [address] [id number] [address] [place] [phone] Nov, [facility] [address] [id number] [address] [place] [phone] May, [facility] [address] [id number] [address] [place] [phone] Apr, [facility] [address] [id number] [address] [place] [phone] Apr, [facility] [address] [id number] [address] [place] [phone] Apr, [facility] [address] [id number] [address] [place] [phone] 14 Sep, 2010 [facility] [address] [id number] [address] [place] [phone] May, [facility] [address] [id number] [address] [place] [phone] Apr, IMMUNIZATIONS No Known Immunizations SOCIAL HISTORY Never Assessed REASON FOR VISIT [facility] PLAN OF CARE VITAL SIGNS MEDICATIONS No Known Medications RESULTS No Results PROCEDURES No Known procedures INSTRUCTIONS MEDICATIONS ADMINISTERED No Known Medications MEDICAL (GENERAL) HISTORY Type Description Date Medical History Hypothyroidism Medical History hyperlipidemia Hospitalization History childbirth 2014
--- OUTSIDE RECORDS SUMMARY | 2019-10-21 21:08 | XMS REPORT ---
Author Author Ivan Meg Doctor Organization [facility] Address Unknown Phone Unavailable Care Team Providers Care Manager Educational Name Role Phone Migration, Doctor Unavailable Unavailable PROBLEMS Type Condition ICD9-CM Code XML53-GO Code Onset Dates Condition S tatus SNOMED Code Problem General counseling for prescription of oral contraceptives V25.01 Active [id number] Problem Unspecified follow-up examination V67.9 Active 077121426 Problem Other, multiple, and unspeci fied sites, insect bite, nonvenomous, infected 919.5 Active 025476994 Problem Unspecified hypothyroidism 244.9 [place] 60866738 Problem Counseling on other sexually transmitted diseases V65.45 Active 680278170 Problem Dermatophytosis of the body 110.5 Ac tive 355632247 Problem Screening examination for venereal disease V74.5 Active 481990848 Problem Cellulitis and abscess of trunk 682.2 Active 681663224 Problem Urinary tract infection, site not specified 599.0 Active 12136581 Problem Dysthymic disorder 300.4 Active 7 8691280 Problem Other and unspecified hyperlipidemia 272.4 Active 51530733 ALLERGIES No Information ENCOUNTERS Encounter Location Date Diagnosis [facility] [address] [facility] [id number] [place] [address] [id number] Mar, Routine gynecological examination V72.31 ; Encounter for Papanicolaou smear for cervical cancer screening Z12.4 ; Contraceptive management Z30.9 ; Screening for STD sexually transmitted disease Z11.3 ; Vaginosis N76.0 and Oth bacterial agents as the cause of diseases classd elswhr B96.89 [facility] [place] [address] [facility] [id number] [address] [place] [phone] Sep, [facility] [place] [address] [facility] [id number] [address] [place] [phone] Sep, [facility] [place] [address] [facility] [id number] [address] [place] [phone] Mar, [facility] [address] [id number] [address] [place] [address], [place] [address] Mar, [facility] [address] [id number] [address] [place] [address], [place] [address] Mar, [facility] [address] [id number] [address] [place] [address], [place] [address] Mar, [facility] [address] [id number] [address] [place] [address], [place] [address] Mar, [facility] [address] [id number] [address] [place] [address], [place] [address] Feb, [facility] [address] [id number] [address] [place] [address], [place] [address] 29 Feb, 2014 [facility] [address] [id number] [address] [place] [address], [place] [address] Feb, [facility] [address] [id number] [address] [place] [address], [place] [address] Feb, [facility] [address] [id number] [address] [place] [address], [place] [address] Feb, [facility] [address] [id number] [address] [place] [address], [place] [address] Feb, [facility] [address] [id number] [address] [place] [address], [place] [address] Dec, [facility] [address] [id number] [address] [place] [phone] Dec, [facility] [address] [id number] [address] [place] [address], [place] [address] Dec, [facility] [address] [id number] [place] [id number] Nov, [facility] [address] [id number] [address] [place] [phone] 13 Nov, 2012 [facility] [address] [id number] [address] [place] [phone] Nov, [facility] [address] [id number] [address] [place] [phone] Nov, [facility] [address] [id number] [address] [place] [phone] Sep, [facility] [address] [id number] [address] [place] [phone] Aug, [facility] [address] [id number] [address] [place] [phone] 05 Aug, 2012 [facility] [address] [id number] [address] [place] [address] Feb, [facility] [address] [id number] [place] [id number] Jan, [facility] [address] [id number] [address] [place] [phone] Nov, [facility] [address] [id number] [address] [place] [phone] Nov, [facility] [address] [id number] [address] [place] [phone] May, [facility] [address] [id number] [address] [place] [phone] Apr, [facility] [address] [id number] [address] [place] [phone] Apr, [facility] [address] [id number] [address] [place] [phone] Apr, [facility] [address] [id number] [address] [place] [phone] 14 Sep, 2010 [facility] [address] [id number] [address] [place] [address] May, [facility] [address] [id number] [address] [place] [phone] Apr, IMMUNIZATIONS No Known Immunizations SOCIAL HISTORY Never Assessed REASON FOR VISIT [facility] PLAN OF CARE VITAL SIGNS MEDICATIONS No Known Medications RESULTS No Results PROCEDURES No Known procedures INSTRUCTIONS MEDICATIONS ADMINISTERED No Known Medications MEDICAL (GENERAL) HISTORY Type Description Date Medical History Hypothyroidism Medical History hyperlipidemia Hospitalization History childbirth 2014
--- OUTSIDE RECORDS SUMMARY | 2019-10-21 21:08 | XMS REPORT ---
Author Author Ivan Meg Doctor Organization [facility] Address Unknown Phone Unavailable Care Team Providers Care Parks Recreation Director Name Role Phone Migration, Doctor Unavailable Unavailable PROBLEMS Type Condition ICD9-CM Code [id number] Code Onset Dates Condition S tatus SNOMED Code Problem General counseling for prescription of oral contraceptives V25.01 Active [id number] Problem Unspecified follow-up examination V67.9 Active 070303188 Problem Other, multiple, and unspeci fied sites, insect bite, nonvenomous, infected 919.5 Active 922455062 Problem Unspecified hypothyroidism 244.9 Act [place] 44271558 Problem Counseling on other sexually transmitted diseases V65.45 Active 595823249 Problem Dermatophytosis of the body 110.5 Ac tive 409002572 Problem Screening examination for venereal disease V74.5 Active 513611328 Problem Cellulitis and abscess of trunk 682.2 Active 303440531 Problem Urinary tract infection, site not specified 599.0 Active 02570584 Problem Dysthymic disorder 300.4 Active 7 2571753 Problem Other and unspecified hyperlipidemia 272.4 Active [id number] ALLERGIES No Information ENCOUNTERS Encounter Location Date Diagnosis [facility] [address] [facility] [id number] [place] [address] [id number] 29 Mar, 2015 Routine gynecological examination V72.31 ; Encounter for Papanicolaou smear for cervical cancer screening Z12.4 ; Contraceptive management Z30.9 ; Screening for STD sexually transmitted disease Z11.3 ; Vaginosis N76.0 and Oth bacterial agents as the cause of diseases classd elswhr B96.89 [facility] [address] [facility] [id number] [address] [place] [phone] Sep, [facility] [address] [facility] [id number] [address] [place] [address] Sep, [facility] [address] [facility] [id number] [address] [place] [address] Mar, [facility] [address] [id number] [address] [place] [address], [place] [address] Mar, [facility] [address] [id number] [address] [place] [address], [place] [address] Mar, [facility] [address] [id number] [address] [place] [address], [place] [address] Mar, [facility] [address] [id number] [address] [place] [address], [place] [address] Mar, [facility] [address] [id number] [address] [place] [address], [place] [address] Feb, [facility] [address] [id number] [address] [place] [address], [place] [address] 29 Feb, 2014 [facility] [address] [id number] [address] [place] [address], [place] [address] Feb, [facility] [address] [id number] [address] [place] [address], [place] [address] Feb, [facility] [address] [id number] [address] [place] [address], [place] [address] Feb, [facility] [address] [id number] [address] [place] [address], [place] [address] Feb, [facility] [address] [id number] [address] [place] [address], [place] [address] Dec, [facility] [address] [id number] [address] [place] [phone] Dec, [facility] [address] [id number] [address] [place] [address], [place] [address] Dec, [facility] [address] [id number] [place] [id number] Nov, [facility] [address] [id number] [address] [place] [phone] 13 Nov, 2012 [facility] [address] [id number] [address] [place] [address] Nov, [facility] [address] [id number] [address] [place] [address] Nov, [facility] [address] [id number] [address] [place] [phone] Sep, [facility] [address] [id number] [address] [place] [address] Aug, [facility] [address] [id number] [address] [place] [phone] 05 Aug, 2012 [facility] [address] [id number] [address] [place] [address] Feb, [facility] [address] [id number] [place] [id number] Jan, [facility] [address] [id number] [address] [place] [address] Nov, [facility] [address] [id number] [address] [place] [phone] Nov, [facility] [address] [id number] [address] [place] [address] May, [facility] [address] [id number] [address] [place] [address] Apr, [facility] [address] [id number] [address] [place] [phone] Apr, [facility] [address] [id number] [address] [place] [address] Apr, [facility] [address] [id number] [address] [place] [phone] 14 Sep, 2010 [facility] [address] [id number] [address] [place] [phone] May, [facility] [address] [id number] [address] [place] [address] Apr, IMMUNIZATIONS No Known Immunizations SOCIAL HISTORY Never Assessed REASON FOR VISIT [facility] [place] VITAL SIGNS MEDICATIONS No Known Medications RESULTS No Results PROCEDURES No Known procedures INSTRUCTIONS MEDICATIONS ADMINISTERED No Known Medications MEDICAL (GENERAL) HISTORY Type Description Date Medical History Hypothyroidism Medical History hyperlipidemia Hospitalization History childbirth 2014
--- OUTSIDE RECORDS SUMMARY | 2019-10-21 21:08 | XMS REPORT ---
Author Author SHANAE Megso MITTAL [facility] Address [address] [place] [address] Care Team Providers Care Wiring Inspector Name Role Phone KYRIE JOLLY Unavailable PROBLEMS Type Condition ICD9-CM Code PNY22-LD Code Onset Dates Condition S tatus SNOMED Code Problem General counseling for prescription of oral contraceptives V25.01 Active [id number] Problem Unspecified follow-up examination V67.9 Active 309896295 Problem Other, multiple, and unspeci fied sites, insect bite, nonvenomous, infected 919.5 Active 328019455 Problem Unspecified hypothyroidism 244.9 [place] 21980974 Problem Counseling on other sexually transmitted diseases V65.45 Active 325708076 Problem Dermatophytosis of the body 110.5 Ac tive 604033181 Problem Screening examination for venereal disease V74.5 Active 811678129 Problem Cellulitis and abscess of trunk 682.2 Active 478545395 Problem Urinary tract infection, site not specified 599.0 Active 17507169 Problem Dysthymic disorder 300.4 Active 7 6810905 Problem Other and unspecified hyperlipidemia 272.4 Active [id number] ALLERGIES No Information ENCOUNTERS Encounter Location Date Diagnosis [facility] [address] [facility] [id number] [place] [id number] Mar, Routine gynecological examination V72.31 ; Encounter for Papanicolaou smear for cervical cancer screening Z12.4 ; Contraceptive management Z30.9 ; Screening for STD sexually transmitted disease Z11.3 ; Vaginosis N76.0 and Oth bacterial agents as the cause of diseases classd elswhr B96.89 [facility] [address] [facility] [id number] [address] [place] [phone] Sep, [facility] [address] [facility] [id number] [address] [place] [address] Sep, [facility] [address] [id number] [address] [place] [address], [place] [address] Mar, [facility] [address] [id number] [address] [place] [address], [place] [address] Mar, [facility] [address] [id number] [address] [place] [address], [place] [address] Mar, [facility] [address] [id number] [address] [place] [address], [place] [address] Mar, [facility] [address] [id number] [address] [place] [address], [place] [address] Mar, [facility] [address] [id number] [address] [place] [address], [place] [address] 29 Feb, 2014 [facility] [address] [id number] [address] [place] [address], [place] [address] 29 Feb, 2013 [facility] [address] [id number] [address] [place] [address], [place] [address] 27 Feb, 2013 [facility] [address] [id number] [address] [place] [address], [place] [address] Feb, [facility] [address] [id number] [address] [place] [address], [place] [address] Feb, [facility] [address] [id number] [address] [place] [address], [place] [address] Feb, 2013 [facility] [address] [id number] [address] [place] [address], [place] [address] Dec, [facility] [address] [id number] [address] [place] [address], [place] [address] Dec, [facility] [address] [id number] [address] [place] [address], [place] [address] Dec, [facility] [address] [id number] [place] [id number] Nov, [facility] [address] [id number] [address] [place] [address], [place] [address] 13 Nov, 2012 [facility] [address] [id number] [address] [place] [address], [place] [address] 12 Nov, 2012 [facility] [address] [id number] [address] [place] [address], [place] [address] 11 Nov, 2012 [facility] [address] [id number] [address] [place] [address], [place] [address] 19 Sep, 2012 [facility] [address] [id number] [address] [place] [address], [place] [address] 08 Aug, 2012 [facility] [address] [id number] [address] [place] [address], [place] [address] Aug, [facility] [address] [id number] [address] [place] [address], [place] [address] 18 Feb, 2012 [facility] [address] [id number] [place], [facility] [id number] Jan, [facility] [address] [id number] [address] [place] [address] Nov, [facility] [address] [id number] [address] [place] [address], [place] [address] Nov, [facility] [address] [id number] [address] [place] [address] May, [facility] [address] [id number] [address] [place] [address], [place] [address] Apr, [facility] [address] [id number] [address] [place] [address] Apr, [facility] [address] [id number] [address] [place] [address], [place] [address] 04 Apr, 2011 [facility] [address] [id number] [address] [place] [address], [place] [address] 14 Sep, 2010 [facility] [address] [id number] [address] [place] [address], [place] [address] 02 May, 2010 [facility] [address] [id number] [address] [place] [address], [place] [address] Apr, IMMUNIZATIONS No Known Immunizations SOCIAL HISTORY Never Assessed REASON FOR VISIT PLAN OF CARE VITAL SIGNS MEDICATIONS No Known Medications RESULTS No Results PROCEDURES No Known procedures INSTRUCTIONS MEDICATIONS ADMINISTERED No Known Medications MEDICAL (GENERAL) HISTORY Type Description Date Medical History Hypothyroidism Medical History hyperlipidemia Hospitalization History childbirth 2014
--- OUTSIDE RECORDS SUMMARY | 2019-10-21 21:08 | XMS REPORT ---
Author Author Ivan Meg Doctor Organization [facility] Address Unknown Phone Unavailable Care Team Providers Care Drill Rig Operator Name Role Phone Migration, Doctor Unavailable Unavailable PROBLEMS Type Condition ICD9-CM Code IPM28-ME Code Onset Dates Condition S tatus SNOMED Code Problem General counseling for prescription of oral contraceptives V25.01 Active [id number] Problem Unspecified follow-up examination V67.9 Active 413928995 Problem Other, multiple, and unspeci fied sites, insect bite, nonvenomous, infected 919.5 Active 172271970 Problem Unspecified hypothyroidism 244.9 [place] 39341111 Problem Counseling on other sexually transmitted diseases V65.45 Active 201815439 Problem Dermatophytosis of the body 110.5 Ac tive 087601243 Problem Screening examination for venereal disease V74.5 Active 020869653 Problem Cellulitis and abscess of trunk 682.2 Active 850584947 Problem Urinary tract infection, site not specified 599.0 Active 46079800 Problem Dysthymic disorder 300.4 Active 7 2549677 Problem Other and unspecified hyperlipidemia 272.4 Active 15666971 ALLERGIES No Information ENCOUNTERS Encounter Location Date Diagnosis [facility] [address] [facility] [id number] [place] [address] [id number] 29 Mar, 2015 Routine gynecological examination V72.31 ; Encounter for Papanicolaou smear for cervical cancer screening Z12.4 ; Contraceptive management Z30.9 ; Screening for STD sexually transmitted disease Z11.3 ; Vaginosis N76.0 and Oth bacterial agents as the cause of diseases classd elswhr B96.89 [facility] [address] [facility] [id number] [address] [place] [address] Sep, [facility] [address] [facility] [id number] [address] [place] [address] Sep, [facility] [address] [facility] [id number] [address] [place] [address] Mar, [facility] [address] [id number] [address] [place] [address], [place] [address] Mar, [facility] [address] [id number] [address] [place] [address], [place] [address] Mar, [facility] [address] [id number] [address] [place] [address], [place] [address] Mar, [facility] [address] [id number] [address] [place] [address], [place] [address] Mar, [facility] [address] [id number] [address] [place] [address], [place] [address] Feb, [facility] [address] [id number] [address] [place] [address], [place] [address] 29 Feb, 2014 [facility] [address] [id number] [address] [place] [address], [place] [address] Feb, [facility] [address] [id number] [address] [place] [address], [place] [address] Feb, [facility] [address] [id number] [address] [place] [address], [place] [address] Feb, [facility] [address] [id number] [address] [place] [address], [place] [address] Feb, [facility] [address] [id number] [address] [place] [address], [place] [address] Dec, [facility] [address] [id number] [address] [place] [address] Dec, [facility] [address] [id number] [address] [place] [address], [place] [address] Dec, [facility] [address] [id number] [place] [id number] Nov, [facility] [address] [id number] [address] [place] [address] 13 Nov, 2012 [facility] [address] [id number] [address] [place] [address] Nov, [facility] [address] [id number] [address] [place] [address] Nov, [facility] [address] [id number] [address] [place] [address] Sep, [facility] [address] [id number] [address] [place] [address] Aug, [facility] [address] [id number] [address] [place] [address] 05 Aug, 2012 [facility] [address] [id number] [address] [place] [address] Feb, [facility] [address] [id number] [place] [id number] Jan, [facility] [address] [id number] [address] [place] [address] Nov, [facility] [address] [id number] [address] [place] [address] Nov, [facility] [address] [id number] [address] [place] [address] May, [facility] [address] [id number] [address] [place] [address] Apr, [facility] [address] [id number] [address] [place] [address] Apr, [facility] [address] [id number] [address] [place] [address] Apr, [facility] [address] [id number] [address] [place] [address] 14 Sep, 2010 [facility] [address] [id number] [address] [place] [address] May, [facility] [address] [id number] [address] [place] [address] Apr, IMMUNIZATIONS No Known Immunizations SOCIAL HISTORY Never Assessed REASON FOR VISIT [facility] PLAN OF CARE VITAL SIGNS MEDICATIONS Medication Instructions Dosage Frequency Start Date End Date Duration S tatus Ultram 50 mg take 1 tablet by Oral route ever y 4-6 hours as needed for pain Feb, Active Levaquin 500 mg 1 tablet by Oral route every 24 hours for 3 days Mar, Active Dapsone 100 mg 1 Tablet by Oral route 1 time per day Feb, Active Bactrim DS 800-160 mg 1 tablet by Oral route 2 times p er day for 7 day(s) Aug, Active NuvaRing 0.12-0.015 mg/24 hr 1 ea by Vag inal route every 4 weeks Insert ring and remove every 21 days Mar, Act [place] Terbinafine 1 % apply to the affecte d and surrounding areas of skin by topical route 2 times per day for 14 days Sep, Active Bactroban 2 % 1 meek by Topical rou te 2 times per day for 14 day(s) apply thin layer Feb, Active RESULTS No Results PROCEDURES No Known procedures INSTRUCTIONS MEDICATIONS ADMINISTERED No Known Medications MEDICAL (GENERAL) HISTORY Type Description Date Medical History Hypothyroidism Medical History hyperlipidemia Hospitalization History childbirth 2014
== END 2019-10-21 21:20 | disposition home or self-care (01) ==
LOC: EDUNIT# 20:34 → ER 20:35
DX: S60.410A Abrasion of right index finger, initial encounter (principal); F17.200 Nicotine dependence, unspecified, uncomplicated; Z23 Encounter for immunization; W26.0XXA Contact with knife, initial encounter
CPT/HCPCS: 12001; 90715

== ENCOUNTER 2020-01-08 20:18 | Emergency (ER) | payer SELFPAY ==
[~2020-01-08] VITALS: Ht 175 cm; Wt 129.7 kg
--- OUTSIDE RECORDS SUMMARY | 2020-01-08 20:28 | XMS REPORT ---
Author Author Meg JOLLY [facility] Address [address] [place] [address] Care Team Providers Care Distribution Associate Name Role Phone KYRIE JOLLY Unavailable PROBLEMS Type Condition ICD9-CM Code JWT03-GE Code Onset Dates Condition S tatus SNOMED Code Problem General counseling for prescription of oral contraceptives V25.01 Active [id number] Problem Unspecified follow-up examination V67.9 Active 145613807 Problem Other, multiple, and unspeci fied sites, insect bite, nonvenomous, infected 919.5 Active 568371167 Problem Unspecified hypothyroidism 244.9 Act lake 56698400 Problem Counseling on other sexually transmitted diseases V65.45 Active 576264281 Problem Dermatophytosis of the body 110.5 Ac tive 931593020 Problem Screening examination for venereal disease V74.5 Active 676472667 Problem Cellulitis and abscess of trunk 682.2 Active 307307851 Problem Urinary tract infection, site not specified 599.0 Active 93422693 Problem Dysthymic disorder 300.4 Active 7 4685480 Problem Other and unspecified hyperlipidemia 272.4 Active 30925107 ALLERGIES No Information ENCOUNTERS Encounter Location Date Diagnosis [facility] [place] [address] [facility] [id number] [address] [place] [address] October, [facility] [address] [facility] [id number] [place] [id number] Mar, Routine gynecological examination V72.31 ; Encounter for Papanicolaou smear for cervical cancer screening Z12.4 ; Contraceptive management Z30.9 ; Screening for STD sexually transmitted disease Z11.3 ; Vaginosis N76.0 and Oth bacterial agents as the cause of diseases classd elswhr B96.89 [facility] [place] [address] [facility] [id number] [address] [place] [address] Sep, [facility] [address] [id number] [address] [place] [address], [place] [address] 13 Sep, 2014 [facility] [address] [id number] [address] [place] [address], [place] [address] Mar, [facility] [address] [id number] [address] [place] [address], [place] [address] Mar, [facility] [address] [id number] [address] [place] [address], [place] [address] Mar, [facility] [address] [id number] [address] [place] [address], [place] [address] Mar, [facility] [address] [id number] [address] [place] [address], [place] [address] Mar, [facility] [address] [id number] [address] [place] [address], [place] [address] 29 Feb, 2014 [facility] [address] [id number] [address] [place] [address], [place] [address] 29 Feb, 2013 [facility] [address] [id number] [address] [place] [address], [place] [address] 27 Feb, 2014 [facility] [address] [id number] [address] [place] [address], [place] [address] 27 Feb, 2014 [facility] [address] [id number] [address] [place] [address], [place] [address] 26 Feb, 2013 [facility] [address] [id number] [address] [place] [address], [place] [address] 26 Feb, 2013 [facility] [address] [id number] [address] [place] [address], [place] [address] Dec, [facility] [address] [id number] [address] [place] [address], [place] [address] 12 Dec, 2012 [facility] [address] [id number] [address] [place] [address], [place] [address] 11 Dec, 2012 [facility] [address] [id number] [place] [id number] 17 Nov, 2012 [facility] [address] [id number] [address] [place] [address], [place] [address] 13 Nov, 2012 [facility] [address] [id number] [address] [place] [address], [place] [address] 12 Nov, 2012 [facility] [address] [id number] [address] [place] [address], [place] [address] Nov, [facility] [address] [id number] [address] [place] [address], [place] [address] 19 Sep, 2012 [facility] [address] [id number] [address] [place] [address], [place] [address] 08 Aug, 2012 [facility] [address] [id number] [address] [place] [address], [place] [address] 05 Aug, 2012 [facility] [address] [id number] [address] [place] [address], [place] [address] Feb, [facility] [address] [id number] [place] [address] S [id number] Jan, [facility] [address] [id number] [address] [place] [address], [place] [address] Nov, [facility] [address] [id number] [address] [place] [address], [place] [address] Nov, [facility] [address] [id number] [address] [place] [address], [place] [address] May, [facility] [address] [id number] [address] [place] [address], [place] [address] Apr, [facility] [address] [id number] [address] [place] [address], [place] [address] Apr, [facility] [address] [id number] [address] [place] [address], [place] [address] 04 Apr, 2011 [facility] [address] [id number] [address] [place] [address], [place] [address] 14 Sep, 2010 [facility] [address] [id number] [address] [place] [phone] May, [facility] [place] [address] [facility] [id number] [address] [place] [address] Apr, IMMUNIZATIONS No Known Immunizations SOCIAL HISTORY Never Assessed REASON FOR VISIT PLAN OF CARE VITAL SIGNS Height 68 in 2012-11-13 Weight 218.12 lbs 2012-11-13 Temperature 97.2 degrees Fahrenheit 2012-11-13 Heart Rate 64 bpm 2012-11-13 Respiratory Rate 10 2012-11-13 Blood pressure systolic 120 mmHg 2012-11-13 Blood pressure diastolic 76 mmHg 2012-11-13 MEDICATIONS Unknown Medications RESULTS No Results PROCEDURES Procedure Date Ordered Result Body Site TRICHOMONAS VAGIN, DIR PROBE November 13, 2012 CHYLMD TRACH, DNA, AMP PROBE November 13, 2012 URINE TEST November 13, 2012 N.GONORRHOEAE, DNA, AMP PROB November 13, 2012 INSTRUCTIONS MEDICATIONS ADMINISTERED No Known Medications MEDICAL (GENERAL) HISTORY Type Description Date Medical History Hypothyroidism Medical History hyperlipidemia Hospitalization History childbirth 2014
--- OUTSIDE RECORDS SUMMARY | 2020-01-08 20:29 | XMS REPORT ---
Author Author Meg JOLLY [facility] Address [address] [place] [address] Care Team Providers Care French Polisher Name Role Phone KYRIE JOLLY Unavailable PROBLEMS Type Condition ICD9-CM Code PLO18-ZU Code Onset Dates Condition S tatus SNOMED Code Problem General counseling for prescription of oral contraceptives V25.01 Active [id number] Problem Unspecified follow-up examination V67.9 Active 179512298 Problem Other, multiple, and unspeci fied sites, insect bite, nonvenomous, infected 919.5 Active 524014157 Problem Unspecified hypothyroidism 244.9 [place] 40096042 Problem Counseling on other sexually transmitted diseases V65.45 Active 255277518 Problem Dermatophytosis of the body 110.5 Ac tive 421618666 Problem Screening examination for venereal disease V74.5 Active 833326386 Problem Cellulitis and abscess of trunk 682.2 Active 733212799 Problem Urinary tract infection, site not specified 599.0 Active 53883092 Problem Dysthymic disorder 300.4 Active 7 7709867 Problem Other and unspecified hyperlipidemia 272.4 Active 17822257 ALLERGIES No Information ENCOUNTERS Encounter Location Date Diagnosis [facility] [address] [facility] [id number] [address] [place] [address] October, [facility] [address] [facility] [id number] [place] [address] [id number] Mar, Routine gynecological examination V72.31 ; Encounter for Papanicolaou smear for cervical cancer screening Z12.4 ; Contraceptive management Z30.9 ; Screening for STD sexually transmitted disease Z11.3 ; Vaginosis N76.0 and Oth bacterial agents as the cause of diseases classd elswhr B96.89 [facility] [address] [facility] [id number] [address] [place] [address] Sep, [facility] [address] [id number] [address] [place] [address], [place] [address] 13 Sep, 2014 [facility] [address] [id number] [address] [place] [address], [place] [address] Mar, [facility] [address] [id number] [address] [place] [address], [place] [address] Mar, [facility] [address] [id number] [address] [place] [address], [place] [address] Mar, [facility] [address] [id number] [address] [place] [address], [place] [address] Mar, [facility] [address] [id number] [address] [place] [address], [place] [address] Mar, [facility] [address] [id number] [address] [place] [address], [place] [address] 29 Feb, 2014 [facility] [address] [id number] [address] [place] [address], [place] [address] 29 Feb, 2013 [facility] [address] [id number] [address] [place] [address], [place] [address] 27 Feb, 2014 [facility] [address] [id number] [address] [place] [address], [place] [address] 27 Feb, 2014 [facility] [address] [id number] [address] [place] [address], [place] [address] 26 Feb, 2013 [facility] [address] [id number] [address] [place] [address], [place] [address] 26 Feb, 2013 [facility] [address] [id number] [address] [place] [address], [place] [address] Dec, [facility] [address] [id number] [address] [place] [address], [place] [address] 12 Dec, 2012 [facility] [address] [id number] [address] [place] [address], [place] [address] 11 Dec, 2012 [facility] [address] [id number] [place] [id number] 17 Nov, 2012 [facility] [address] [id number] [address] [place] [address], [place] [address] 13 Nov, 2012 [facility] [address] [id number] [address] [place] [address], [place] [address] 12 Nov, 2012 [facility] [address] [id number] [address] [place] [address], [place] [address] Nov, [facility] [address] [id number] [address] [place] [address], [place] [address] 19 Sep, 2012 [facility] [address] [id number] [address] [place] [address], [place] [address] 08 Aug, 2012 [facility] [address] [id number] [address] [place] [address], [place] [address] 05 Aug, 2012 [facility] [address] [id number] [address] [place] [address], [place] [address] Feb, [facility] [address] [id number] [place] [address] S [id number] Jan, [facility] [address] [id number] [address] [place] [address], [place] [address] Nov, [facility] [address] [id number] [address] [place] [address], [place] [address] Nov, [facility] [address] [id number] [address] [place] [address], [place] [address] May, [facility] [address] [id number] [address] [place] [address], [place] [address] Apr, [facility] [address] [id number] [address] [place] [address], [place] [address] Apr, [facility] [address] [id number] [address] [place] [address], [place] [address] 04 Apr, 2011 [facility] [address] [id number] [address] [place] [address], [place] [address] 14 Sep, 2010 [facility] [address] [id number] [address] [place] [address] May, [facility] [address] [facility] [id number] [address] [place] [address] Apr, IMMUNIZATIONS No Known Immunizations SOCIAL HISTORY Never Assessed REASON FOR VISIT PLAN OF CARE VITAL SIGNS Height 68 in 2012-12-12 Weight 214.06 lbs 2012-12-12 Temperature 97.6 degrees Fahrenheit 2012-12-12 Heart Rate 72 bpm 2012-12-12 Respiratory Rate 18 2012-12-12 Blood pressure systolic 100 mmHg 2012-12-12 Blood pressure diastolic 70 mmHg 2012-12-12 MEDICATIONS Unknown Medications RESULTS No Results PROCEDURES Procedure Date Ordered Result Body Site URINE TEST December 12, 2012 INSTRUCTIONS MEDICATIONS ADMINISTERED No Known Medications MEDICAL (GENERAL) HISTORY Type Description Date Medical History Hypothyroidism Medical History hyperlipidemia Hospitalization History childbirth 2014
--- OUTSIDE RECORDS SUMMARY | 2020-01-08 20:29 | XMS REPORT | Continuity of Care Document ---
Author Organization Unknown Address Unknown Phone Unavailable Allergies Active Description Code Type Severity Reaction Onset Reported/Identified Relationship to Patient Clinical Status Yes No Known Drug Allergies [id number] Drug Allergy Unknown N/A 10/21/2019 Medications There is no data. Problems Date [...] for: contraceptive surveillance 02/04/2010 KYRIE JOLLY APRN L V25.02 GENERAL COUNSELING AND ADVICE, INITIATIO N OF OTHER CONTRACEPTIVE MEASURES 02/04/2010 ROSA JOLLY APRNSON L V25.40 visit for: contraceptive surveillance 02/04/2010 PEREZ DO ARIC K V25.02 GENERAL COUNSELING AND ADVICE, INITIATION OF OTHER CONTRACEPTIVE MEASURES 02/04/2010 PEREZ DO ARIC K V25.40 visit for: contraceptive surveillance 02/04/2010 HOWARD 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 WORKER MICHELA N V25.02 GENERAL COUNSELING AND ADVICE, INITIATIO N OF OTHER CONTRACEPTIVE MEASURES 02/04/2010 HOWARD 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 WORKER, MICHELA N V25.40 visit for: contraceptive surveillance 02/04/2010 PEREZ DO ARIC K V25.02 GENERAL COUNSELING AND ADVICE, INITIATION OF OTHER CONTRACEPTIVE MEASURES 02/04/2010 PEREZ DO ARIC K V25.40 visit for: contraceptive surveillance 04/07/2011 278.00 OBESITY 04/07/2011 300.00 anxiety 04/07/2011 493.90 AST HMA EXERCISE- INDUCED 04/07/2011 278.00 OBESITY 04/07/2011 300.00 anxiety 04/07/2011 493.90 AST HMA EXERCISE- INDUCED 04/07/2011 278.00 OBESITY 04/07/2011 300.00 anxiety 04/07/2011 493.90 AST HMA EXERCISE- INDUCED 04/07/2011 KYRIE JOLLY APRN L 278.00 OBESITY 04/07/2011 ROSA JOLLY APRNSON L 300.00 anxiety 04/07/2011 ROSA JOLLY APRNSON L 493.90 ASTHMA EXERCISE-INDUCED 04/07/2011 PEREZ DO, ARIC K 278.00 OBESITY 04/07/2011 PEREZ DO, ARIC K 300.00 anxiety 04/07/2011 PEREZ DO, ARIC K 493.90 ASTHMA EXERCISE-INDUCED 04/07/2011 HOWARD 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 WORKER, MICHELA N 278.00 OBESITY 04/07/2011 HOWARD 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 WORKER, MICHELA N 300.00 anxiety 04/07/2011 HOWARD 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 WORKER, MICHELA N 493.90 ASTHMA EXERCISE-INDUCED 04/07/2011 PEREZ DO, ARIC K 278.00 OBESITY 04/07/2011 PEREZ DO, ARIC K 300.00 anxiety 04/07/2011 PEREZ DO, ARIC K 493.90 ASTHMA EXERCISE-INDUCED 11/16/2011 V25.01 [...] exam bact/spirochetal STD 11/16/2011 ARIC PEREZ DO V25.01 CONTRACEPTION - ORAL CONTRACEPTION 11/16/2011 ARIC PEREZ DO V74.5 visit for: screening exam bact/spirochetal STD 11/16/2011 MICHELA CASTILLO APRN V25.01 CONTRACEPTION - ORAL CONTRACEPTION 11/16/2011 MICHELA CASTILLO APRN V74.5 visit for: screening exam bact/spirochetal STD 11/16/2011 ARIC PEREZ DO V25.01 CONTRACEPTION - ORAL CONTRACEPTION 11/16/2011 ARIC PEREZ DO V74.5 visit for: screening exam bact/spirochetal STD 02/20/2012 300.4 DEPR ESSION WITH ANXIETY 02/20/2012 300.4 DEPR ESSION WITH ANXIETY 02/20/2012 300.4 DEPR ESSION WITH ANXIETY 02/20/2012 KYRIE JOLLY APRN 30 0.4 DEPRESSION WITH ANXIETY 02/20/2012 ARIC PEREZ DO 300.4 DEPRESSION WITH ANXIETY 02/20/2012 MICHELA CASTILLO APRN N 300.4 DEPRESSION WITH ANXIETY 02/20/2012 ARIC PEREZ DO 300.4 DEPRESSION WITH ANXIETY 08/06/2012 599.0 URIN JESSIE TRACT INFECTION 08/06/2012 599.0 URIN JESSIE TRACT INFECTION 08/06/2012 599.0 URIN JESSIE TRACT INFECTION 08/06/2012 KYRIE JOLLY APRN 59 9.0 URINARY TRACT INFECTION 08/06/2012 ARIC PEREZ DO 599.0 URINARY TRACT INFECTION 08/06/2012 MICHELA CASTILLO APRN N 599.0 URINARY TRACT INFECTION 08/06/2012 PEREZ DO ARIC K 599.0 URINARY TRACT INFECTION 09/20/2012 110.5 DERM ATOPHYTOSIS TINEA CORPORIS 09/20/2012 110.5 DERM ATOPHYTOSIS TINEA CORPORIS 09/20/2012 KYRIE JOLLY APRN 11 0.5 DERMATOPHYTOSIS TINEA CORPORIS 09/20/2012 ARIC PEREZ DO K 110.5 DERMATOPHYTOSIS TINEA CORPORIS 09/20/2012 MICHELA CASTILLO APRN N 110.5 DERMATOPHYTOSIS TINEA CORPORIS 09/20/2012 PEREZ DO ARIC K 110.5 DERMATOPHYTOSIS TINEA CORPORIS 11/13/2012 V65.45 STD COUNSELING 11/13/2012 KYRIE JOLLY APRN V65.45 STD COUNSELING 11/13/2012 PEREZ DO ARIC K V65.45 STD COUNSELING 11/13/2012 MICHELA CASTILLO APRN N V65.45 STD COUNSELING 11/13/2012 ANTHONY PEREZ DOA K V65.45 STD COUNSELING 02/28/2014 ARIC PEREZ DO K 244.9 HYPOTHYROIDISM, SUBCLINICAL 02/28/2014 PEREZ DO ARIC K 272.4 HYPERLIPIDEMIA 02/28/2014 PEREZ DO ARIC K 682.2 CELLULITIS AND ABSCESS OF TRUNK 02/28/2014 MICHELA CASTILLO APRN N 244.9 HYPOTHYROIDISM, SUBCLINICAL 02/28/2014 MICHELA CASTILLO APRN N 272.4 HYPERLIPIDEMIA 02/28/2014 MICHELA CASTILLO APRN N 682.2 CELLULITIS AND ABSCESS OF TRUNK 02/28/2014 ANTHONY PEREZ DOA K 244.9 HYPOTHYROIDISM, SUBCLINICAL 02/28/2014 PEREZ DO ARIC K 272.4 HYPERLIPIDEMIA 02/28/2014 PEREZ DO ARIC K 682.2 CELLULITIS AND ABSCESS OF TRUNK 03/02/2014 MICHELA CASTILLO APRN N 919.5 INSECT BITE NONVENOMOUS OF OTHER MULTIPL E AND UNSPECIFIED SITES INFECTED 03/02/2014 ANTHONY PEREZ DOA K 919.5 INSECT BITE NONVENOMOUS OF OTHER MULTIPLE AND UNSPECIFIED SITES INFECTED 03/09/2014 ARIC PEREZ DO K V67.9 UNSPECIFIED FOLLOW-UP EXAMINATION Procedures Code Description [place] [address] UA L SELENE DIP 08/06/2012 58886 CULT URE URINE 08/06/2012 04575 URIN E TEST (IN- HOUSE) 11/13/2012 90134 TRIC HOMONAS (IN-HOUSE) 11/13/2012 60957 CHLA MYDIA PROBE/URINE 11/13/2012 17328 GC P ROBE/URINE 11/13/2012 56433 DRAI NAGE OF SKIN ABSCESS 02/28/2014 46416 CULT URE WOUND (AEROBIC) 03/10/2014 Results There is no data. Encounters ACCT No. Visit Date/Time Discharge Status Pt. Type Provider Facility Loc./Unit Complaint [id number] 03/09/2014 15:28:00 03/09/2014 23:59: 59 CLS Outpatient ARIC PEREZ DO [id number] 03/02/2014 13:53:00 03/02/2014 23:59: 59 CLS Outpatient MICHELA CASTILLO APRN [id number] 02/28/2014 13:04:00 02/28/2014 23:59: 59 CLS Outpatient ARIC PEREZ DO [id number] 12/12/2012 15:37:00 12/12/2012 23:59: 59 CLS Outpatient KYRIE JOLLY APRN [id number] 08/06/2012 15:23:00 08/06/2012 23:59: 59 CLS Outpatient [id number] 11/13/2012 08:31:00 Document Registration [id number] 09/20/2012 15:43:00 Document Registration [id number] 10/21/2019 20:35:00 020 21:20:00 DIS Emergency YUSEF GERMAN [facility] ER R INDEX FINGER LAC [id number] 06/27/2013 22:58:00 014 23:47:00 DIS Outpatient
[2020-01-08 21:14] LABS: BILIRUBIN,URINE NEGATIVE (NEGATIVE); CLARITY,URINE CLEAR; COLOR,URINE YELLOW; GLUCOSE, URINE (UA) NEGATIVE (NEGATIVE); KETONES,URINE NEGATIVE (NEGATIVE); LEUKOCYTE ESTERASE ,URINE NEGATIVE (NEGATIVE); NITRITE,URINE NEGATIVE (NEGATIVE); PROTEIN,URINE NEGATIVE (NEGATIVE)
[2020-01-08 21:25] LABS: AMORPHOUS SEDIMENT,UR FEW AMOR URATES /LPF; BACTERIA,URINE TRACE /HPF
[2020-01-08] MEDS ORDERED: KETOROLAC 60 MG/2 ML VIAL IM STA (21:33)
--- NOTE | 2020-01-08 21:43 | ED GU-Female ---
General Chief Complaint: - Urinary Stated Complaint: ABD PAIN/LOWER BACK PAIN/BLOOD IN URINWE Nursing Triage Note: intermittant lower abdominal cramping with bloody urine. reports burning with urination. Nursing Sepsis Screen: No Definite Risk Source: patient Exam Limitations: no limitations (TYREE SHORT [facility]) History of Present Illness Date Seen by Provider: Jan 08, 2020 Time Seen by Provider: 21:00 Initial Comments This is a 24 y/o F who presents to the ED with 2 days of bilat flank and suprapubic pain worse on L than R with associated dysuria, burning with urination and "brown/redish discharge/blood on TP" when she wipes. Describes the pain as sharp and rates it a 4/10. also reports increased clear vaginal discharge for the past week since she has restarted drinking soda. Has also had few episodes of loose stools but denies any F, N/V, dyspareunia or any sx at this time. Pt is sexually active (last active 4 days ago) and her LMP was on December 23. She has taken Ibuprofen @ 3PM today with minimal relief. Timing/Duration: constant, other (2 days) Severity/Quality: moderate, sharp Location: suprapubic, right flank, left flank Radiation: none Activities at Onset: none Modifying Factors: Improves With Analgesics, Improves With Resting; Worsens With Urinating Associated Symptoms: abdominal pain, dysuria; No fever/chills, No nausea/vomiting; urinary frequency ([facility]REE SHORT [facility]) Timing/Duration: constant, other (2 days) Location: suprapubic, right flank, left flank Radiation: none Activities at Onset: none Modifying Factors: Improves With Analgesics Associated Symptoms: dysuria; No nausea/vomiting; urinary frequency, other (vaginal discharge) (DINESH BORREGO MD) Allergies and Home Medications Allergies Coded Allergies: No Known Drug Allergies (Unverified , 10/21/19) Home Medications No Active Prescriptions or Reported Meds Patient Home Medication List Home Medication List Reviewed: Yes (DINESH BORREGO MD) Review of Systems Review of Systems Constitutional: No chills, No fever Respiratory: no symptoms reported Cardiovascular: no symptoms reported Gastrointestinal: abdominal pain (suprapubic. bilat flank); No constipation; diarrhea; No nausea, No vomiting Genitourinary: burning, discharge, dysuria, frequency, flank pain, pain Skin: no symptoms reported (TYREE SHORT [facility]) Constitutional: see HPI Respiratory: no symptoms reported Cardiovascular: no symptoms reported Gastrointestinal: abdominal pain (suprapubic. bilat flank), diarrhea; No nausea, No vomiting Genitourinary: discharge, dysuria (DINESH BORREGO MD) Past Kunldpl-Cjoprd-Afftrz Hx Past Med/Social Hx: Reviewed Nursing Past Med/Soc Hx (DINESH BORREGO MD) Patient Social History Alcohol Use: Denies Use Recreational Drug Use: No Smoking Status: Current Everyday Smoker Type Used: Cigarettes 2nd Hand Smoke Exposure: Yes Recent Foreign Travel: No Contact w/Someone Who Travel: No Recent Infectious Disease Expo: No Recent Hopitalizations: No Physical Abuse: No Sexual Abuse: No Mistreated: No Fear: No (TYREE SHORT [facility]) Immunizations Up To Date Tetanus Booster (TDap): More than 5yrs PED Vaccines UTD: Yes Date of Influenza Vaccine: Mar 04, 2014 (TYREE SHORT [facility]) Seasonal Allergies Seasonal Allergies: No (TYREE SHORT [facility]) Past Medical History Surgeries: Yes Section, Gallbladder Respiratory: Yes Asthma Cardiac: No Neurological: No : No Last Menstrual Period: Dec 22, 2019 Genitourinary: No Gastrointestinal: No Musculoskeletal: No Endocrine: Yes Hypothyroidsim HEENT: No Cancer: No Psychosocial: Yes Anxiety Integumentary: No Blood Disorders: No Adverse Reaction/Blood Tranf: No (TYREE SHORT [facility]) Family Medical History Reviewed Nursing Family Hx (DINESH BORREGO MD) Physical Exam Vital Signs Vital Signs - First Documented 01/08/20 20:57 Temp 36.3 Pulse 87 Resp 16 B/P (MAP) 138/67 (90) O2 Delivery Room Air (DINESH BORREGO MD) Vital Signs Capillary Refill : Less Than 3 Seconds (TYREE SHORT) Height, Weight, BMI Height: 5'8.00" Weight: 229lbs. oz. 103.115831oy; 42.00 BMI Method: General Appearance: WD/WN, no apparent distress, obese HEENT: PERRL/EOMI, normal ENT inspection Neck: non-tender, full range of motion Cardiovascular: normal peripheral pulses, regular rate, rhythm, no edema, no murmur Respiratory: chest non-tender, lungs clear, normal breath sounds Gastrointestinal: normal bowel sounds, non tender, soft, no organomegaly, no pulsatile mass Back: normal inspection, CVA tenderness (L) Neurologic/Psychiatric: alert, oriented x 3 ([facility]) General Appearance: WD/WN, no apparent distress Cardiovascular: normal peripheral pulses, regular rate, rhythm, no edema Respiratory: lungs clear, normal breath sounds Gastrointestinal: non tender, soft Back: normal inspection, CVA tenderness (L) Neurologic/Psychiatric: alert, oriented x 3 Skin: normal color, warm/dry (DINESH BORREGO MD) Progress/Results/Core Measures Suspected Sepsis Recent Fever Within 48 Hours: No Infection Criteria Present: None New/Unexplained Altered Menta: No Sepsis Screen: No Definite Risk SIRS Temperature: Pulse: 87 Respiratory Rate: 16 Blood Pressure 138 /67 Mean: 90 ([facility]) Results/Orders Lab Results Laboratory Tests Test 01/08/20 21:00 01/08/20 21:45 Range/Units Urine Color YELLOW Urine Clarity CLEAR Urine pH 6.0 5-9 Urine Specific [place] 1.010 L 1.016-1.022 Urine Protein NEGATIVE NEGATIVE Urine Glucose (UA) NEGATIVE NEGATIVE Urine Ketones NEGATIVE NEGATIVE Urine Nitrite NEGATIVE NEGATIVE Urine Bilirubin NEGATIVE NEGATIVE Urine Urobilinogen 0.2 < = 1.0 MG/DL Urine Leukocyte Esterase NEGATIVE NEGATIVE Urine RBC (Auto) NEGATIVE NEGATIVE Urine RBC NONE /HPF Urine WBC NONE /HPF Urine Crystals PRESENT H /LPF Urine Amorphous Sediment FEW BEA URATES H /LPF Urine Bacteria TRACE /HPF Urine Casts NONE /LPF Urine Mucus NEGATIVE /LPF Urine Culture Indicated NO (DINESH BORREGO MD) Micro Results Microbiology 01/08/20 Wet Prep - Final, Complete (DINESH BORREGO MD) My Orders Orders - DINESH BORREGO MD Ua Culture If Indicated (01/08/20 21:02) Urine Bedside (01/08/20 21:03) Wet Prep (8/6/20 21:31) Neisseria Gonorrhea Swab (01/08/20 21:31) Chlamydia Trachomatis Swab (01/08/20 21:31) Ketorolac Injection (Toradol Injection) (01/08/20 21:33) (DINESH BORREGO MD) Vital Signs/I&O 01/08/20 20:57 Temp 36.3 Pulse 87 Resp 16 B/P (MAP) 138/67 (90) O2 Delivery Room Air (DINESH BORREGO MD) Vital Signs/I&O Capillary Refill : Less Than 3 Seconds (TYREE SHORT) Blood Pressure Mean: 90 Progress Note : Time: 21:00 Progress Note Seen and evaluated. Presentation is concerning for UTI, STI, Vaginosis, pyelonephritis, Nephrolithiasis, . Will order 60Mg IM Ketorolac for pain control. Plan is to check UA, urine test, and vaginal swab. Defer any imaging and further labs pending urine and swab results. Will continue to monitor pt. @10:14 Rechecked; pt reports improvement of her pain after ketorolac. still eugenie iting micro results at this time. Will continue to monitor (TYREE SHORT) Progress Note : Progress Note I have seen and evaluated the patient and agree with above except as indicated. Directed the plan of care. Patient is here with suprapubic pain that is a little better with ibuprofen but back again and also with some vaginal discharge. States that it started after restarting drinking Pepsi a few days ago. Did have an episode of diarrhea. UA ordered and is negative. We will do the self swab for wet prep as well as chlamydia and gonorrhea. Pain is better after 60 mg of Toradol IM. Monitor patient. 2354: Wet prep is negative. Findings still seem consistent with bacterial vaginosis especially given patient's report of discharge. Offered pelvic exam and she would like to actually follow up with her women's health provider for pelvic exam and Pap smear. We discussed different options including further evaluation and also initiating treatment. She has chosen to do empiric therapy with metronidazole which seems reasonable. Metronidazole 500 mg by mouth given. Discharged home with return precautions. Patient verbalize understanding instructions and agreement with plan. (DINESH BORREGO MD) Departure Impression Primary Impression: Suprapubic abdominal pain Disposition: HOME, SELF-CARE Condition: Improved Departure-Patient Inst. Decision time for Depature: 23:55 (DINESH BORREGO MD) Referrals: [facility] (PCP/Family) Primary Care Physician Patient Instructions: Acute Pelvic Pain (DC), Bacterial Vaginosis (DC) Add. Discharge Instructions: All discharge instructions reviewed with patient and/or family. Voiced understanding. Take medications as directed. Follow-up with your Dr. in a few days for recheck. Return for worse pain, fever, vomiting, weakness, breathing problems or other concerns as needed. You need to get your women's health exam done and you should get a pelvic done to evaluate for other problems. Is was a limited evaluation and I encourage you to return if there is any concerns or worsening so we can do further evaluation. You may take ibuprofen 800 mg every 8 hours as needed for pa in. You may also take Tylenol/acetaminophen 1000 mg every 8 hours as needed for pain. Drink plenty of fluids. Scripts Metronidazole (Metronidazole) 500 Mg Tablet 500 MG PO BID, #13 TAB 0 Refills Prov: DINESH BORREGO MD 01/08/[address] [facility] Jan 08, 2020 21:43 DINESH BORREGO MD Jan 08, 2020 22:36
[2020-01-08] MEDS ORDERED: metroNIDAZOLE 500 MG (FLAGYL) TAB PO STA (23:53)
[2020-01-08] MEDS ORDERED: METR-145 PO (23:57)
[2020-01-09 00:10] VITALS: BP 127/74
== END 2020-01-09 00:11 | disposition home or self-care (01) ==
LOC: EDUNIT# 20:18 → ER 20:19
DX: R10.30 Lower abdominal pain, unspecified (principal); F17.210 Nicotine dependence, cigarettes, uncomplicated
CPT/HCPCS: 36415; 81000; 84703; 87210; 87491; 87591; 96372; 99284

== ENCOUNTER 2020-02-12 13:04 | Emergency (ER) | payer SELFPAY ==
[~2020-02-12] VITALS: Ht 175.3 cm; Wt 109.1 kg
[~2020-02-12 13:04] MED LIST changes: +METR-145 PO
[2020-02-12] MEDS ORDERED: ACETAMINOPHEN 500 MG TAB (TYLENOL) PO ONE (13:45)
[2020-02-12] MEDS ORDERED: KETOROLAC 60 MG/2 ML VIAL IM ONE (13:45)
[2020-02-12] MEDS ORDERED: LIDOCAINE 2% VISCOUS 15 ML UDC PO ONE (13:45)
[2020-02-12] MEDS ORDERED: LIDOCAINE 1% INJ 20 ML 20 ML VIAL INJ ONE (13:45)
[2020-02-12] MEDS ORDERED: cefTRIAXone 1,000 MG/2.86 ml vial (IM ONLY) IM ONE (13:45)
--- NOTE | 2020-02-12 13:46 | ED EENT ---
History of Present Illness General Chief Complaint: Dental Problems/Pain Stated Complaint: MOUTH INFECTION Source: patient Exam Limitations: no limitations History of Present Illness Date Seen by Provider: Feb 12, 2020 Time Seen by Provider: 13:36 Initial Comments The patient presents to the ER by private conveyance from home with chief complaint that she's having pain dizziness and swelling around her right tooth. She feels pressure in her right ear. She's not having any fevers but she is feeling nauseated. She saw a dentist today and they said she has an impacted molar and put her on a powerful dose of amoxicillin she said. She has not picked up the antibiotics yet. She says the pain was not better so she came out here to suggest something else for pain besides Tylenol and ibuprofen. She has not had either one today. Allergies and Home Medications Allergies Coded Allergies: No Known Drug Allergies (Unverified , 10/21/19) Home Medications Metronidazole 500 Mg Tablet, 500 MG PO BID Prescribed by: DINESH BORREGO on 01/08/20 6115 Patient Home Medication List Home Medication List Reviewed: Yes Review of Systems Review of Systems Constitutional: No chills, No diaphoresis Eyes: Denies Blindness, Denies Drainage Ears: See HPI, Dizziness; Denies Pain Nose: denies clots, denies congestion Mouth: denies clots; pain, swelling Throat: denies pain, denies swelling Respiratory: No cough, No short of breath All Other Systems Reviewed Negative Unless Noted: Yes Past Vzrqsfy-Ijetmr-Dcfadi Hx Patient Social History Alcohol Use: Denies Use Recreational Drug Use: No Smoking Status: Current Everyday Smoker Type Used: Cigarettes 2nd Hand Smoke Exposure: Yes Recent Foreign Travel: No Contact w/Someone Who Travel: No Recent Hopitalizations: No Immunizations Up To Date Tetanus Booster (TDap): More than 5yrs PED Vaccines UTD: Yes Date of Influenza Vaccine: Mar 04, 2014 Seasonal Allergies Seasonal Allergies: No Past Medical History Surgeries: Yes Section, Gallbladder Respiratory: Yes Asthma Cardiac: No Neurological: No Genitourinary: No Gastrointestinal: No Musculoskeletal: No Endocrine: Yes Hypothyroidsim HEENT: No Cancer: No Psychosocial: Yes Anxiety Integumentary: No Blood Disorders: No Adverse Reaction/Blood Tranf: No Physical Exam Height, Weight, BMI Height: 5'8.00" Weight: 229lbs. oz. 103.593353vp; 42.00 BMI Method: General Appearance: WD/WN, mild distress Eyes: bilateral eye normal inspection, bilateral eye PERRL, bilateral eye EOMI Ears: right ear tenderness, right ear TM bulging; bilateral ear auricle normal, bilateral ear canal normal, bilateral ear other (clear mucoid effusion) Nose: normal inspection; No active bleeding Mouth/Throat: normal mouth inspection, pharynx normal, dental tenderness (right mandible); No excessive drooling, No foreign body Neck: non-tender, full range of motion, supple, normal inspection Cardiovascular: normal peripheral pulses, regular rate, rhythm Respiratory: lungs clear, normal breath sounds Progress/Results/Core Measures Results/Orders My Orders Orders - AL ZEE Ceftriaxone For Im Use (Rocephin For Im (02/12/20 13:45) Ketorolac Injection (Toradol Injection) (02/12/20 13:45) Lidocaine 2% Viscous 15 Ml (Xylocaine Vi (02/12/20 13:45) Lidocaine 1% Inj 20 Ml (Xylocaine 1% Inj (02/12/20 13:45) Acetaminophen Tablet (Tylenol Tablet) (02/12/20 13:45) Ondansetron Oral Dissolve Tab (Zofran (02/12/20 14:00) Progress Progress Note : Time: 13:49 Progress Note aseptic VS. She wants IV abx. IM rocephin, topical lidocaine, IM Toradol, PO Tylenol. Offered Alveolar Nerve block and she denied. Encouraged to get the Abx. GoodRx card provided. Departure Impression Primary Impression: Impacted molar Disposition: 01 HOME, SELF-CARE Condition: Stable Departure-Patient Inst. Decision time for Depature: 13:45 Referrals: [facility]) Primary Care Physician Patient Instructions: Impacted Tooth (DC) Add. Discharge Instructions: Keep your follow-up appointments with the dentist. 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 Drink plenty of fluids to stay hydrated. Tylenol 1000 mg every 8 hours as necessary for pain. Ibuprofen 800 mg every 8 hours as necessary for pain. Warm moist compresses applied directly over the jaw as often as necessary for pain. You may apply 5 mL of viscous lidocaine over the tooth with a piece of gauze to hold it in place every 6 hours as necessary for breakthrough pain. All discharge instructions reviewed with patient and/or family. Voiced understanding. Scripts [Viscous Lidocaine 2%] 2% EA No Conflict Check 5 ML MM Q6H PRN for PAIN-BREAKTHROUGH, #100 GM 0 Refills Prov: AL ZEE 02/12/20 AL ZEE Feb 12, 2020 13:46
[2020-02-12] MEDS ORDERED: ONDANSETRON 4 MG (ZOFRAN) ORAL DISSOLVE TAB PO ONE (14:00)
[2020-02-12] MEDS ORDERED: Viscous Lidocaine 2% MM (14:00)
[2020-02-12 14:10] VITALS: BP 130/78
== END 2020-02-12 14:10 | disposition home or self-care (01) ==
LOC: EDUNIT# 13:04 → ER 13:05
DX: K01.1 Impacted teeth (principal); F17.210 Nicotine dependence, cigarettes, uncomplicated
CPT/HCPCS: 99284

== ENCOUNTER 2020-03-18 18:40 | Emergency (ER) | payer OTHER ==
[~2020-03-18] VITALS: Ht 175 cm; Wt 108.0 kg
[~2020-03-18 18:40] MED LIST changes: +Viscous Lidocaine 2% MM
[2020-03-18 19:01] LABS: BILIRUBIN,URINE NEGATIVE (NEGATIVE); CLARITY,URINE CLEAR; COLOR,URINE YELLOW; GLUCOSE, URINE (UA) NEGATIVE (NEGATIVE); KETONES,URINE NEGATIVE (NEGATIVE); LEUKOCYTE ESTERASE ,URINE NEGATIVE (NEGATIVE); NITRITE,URINE NEGATIVE (NEGATIVE); PROTEIN,URINE NEGATIVE (NEGATIVE)
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
[2020-03-18 19:11] LABS: BACTERIA,URINE NEGATIVE /HPF; SQUAMOUS EPITHELIAL CELL,UR 0-2 /HPF
--- NOTE | 2020-03-18 19:29 | Diagnostic Imaging Report ---
INDICATION: Pelvic pain. COMPARISON: None. EXAMINATION: Single view of the pelvis and two views of the left hip. FINDINGS: No fracture or dislocation. Articular surfaces are normal. No osseous lesion is seen. IMPRESSION: No fracture identified. Dictated by: Dictated on workstation # [id number]
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
[2020-03-18] MEDS ORDERED: NAPR500T8 PO (19:53)
[2020-03-18] MEDS ORDERED: CYCL10TA9 PO (19:53)
[2020-03-18 19:57] VITALS: BP 149/65
== END 2020-03-18 19:57 | disposition home or self-care (01) ==
LOC: EDUNIT# 18:40 → ER 18:42
DX: S16.1XXA Strain of muscle, fascia and tendon at neck level, initial encounter (principal); S70.02XA Contusion of left hip, initial encounter; S09.90XA Unspecified injury of head, initial encounter; E66.9 Obesity, unspecified; R40.2410 Glasgow coma scale score 13-15, unspecified time; Z68.35 Body mass index [BMI] 35.0-35.9, adult; F17.210 Nicotine dependence, cigarettes, uncomplicated; V89.2XXA Person injured in unspecified motor-vehicle accident, traffic, initial encounter
CPT/HCPCS: 70450; 72125; 81000; 84703

== ENCOUNTER 2020-03-21 16:27 | Emergency (ER) | payer OTHER ==
[~2020-03-21] VITALS: Ht 172 cm; Wt 108.0 kg
[~2020-03-21 16:27] MED LIST changes: +CYCL10TA9 PO; +NAPR500T8 PO
[2020-03-21 16:30] VITALS: BP 146/100
[2020-03-21] MEDS ORDERED: AMOX500C2 PO (16:40)
[2020-03-21] MEDS ORDERED: ACHD5005 PO (16:40)
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
--- NOTE | 2020-03-21 16:42 | NUR ---
PT STATES SHE IS ABLE TO CONTACT HER FAMILY HERSELF.
--- NOTE | 2020-03-21 16:46 | NUR ---
HOLLY IN ROOM AT THIS TIME.
[2020-03-22] MEDS ORDERED: ACHD5005 PO (21:56)
== END 2020-03-21 16:52 | disposition home or self-care (01) ==
LOC: EDUNIT# 16:27 → ER 16:28
DX: S02.5XXA Fracture of tooth (traumatic), initial encounter for closed fracture (principal); Z77.22 Contact with and (suspected) exposure to environmental tobacco smoke (acute) (chronic); V49.9XXA Car occupant (driver) (passenger) injured in unspecified traffic accident, initial encounter
CPT/HCPCS: 99282

== ENCOUNTER 2020-03-22 21:52 | Emergency (ER) | payer OTHER ==
[~2020-03-22 21:52] MED LIST changes: +ACHD5005 PO; +AMOX500C2 PO
[2020-03-22 21:55] VITALS: BP 140/95
[2020-03-22] MEDS ORDERED: ACHD5005 PO (21:56)
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
[2020-03-22] MEDS ORDERED: RX-HYDROCODONE/APAP 5/325 MG #4 TAB PK PO PRN (22:00)
[2020-03-22] MEDS ORDERED: LIDOCAINE 2% VISCOUS 15 ML UDC ONE (22:39)
[2020-03-22] MEDS ORDERED: LIDOCAINE 2% VISCOUS 15 ML UDC PO ONE (22:45)
== END 2020-03-22 22:29 | disposition home or self-care (01) ==
LOC: EDUNIT# 21:52 → ER 21:53
DX: S02.5XXA Fracture of tooth (traumatic), initial encounter for closed fracture (principal); Z77.22 Contact with and (suspected) exposure to environmental tobacco smoke (acute) (chronic); V89.2XXA Person injured in unspecified motor-vehicle accident, traffic, initial encounter
CPT/HCPCS: 99281

== ENCOUNTER 2021-03-12 23:20 | Emergency (ER) | payer MEDICAID, OTHER ==
[~2021-03-12] VITALS: Ht 172 cm; Wt 115.0 kg
[2021-03-12 23:25] VITALS: BP 146/88
[2021-03-12] MEDS ORDERED: LEVO200T62 (23:30)
[2021-03-12] MEDS ORDERED: ETON1VAG8 (23:30)
[2021-03-12] MEDS ORDERED: ATOR20TA66 (23:30)
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
[2021-03-12] MEDS ORDERED: ONDA4TAB11 PO (23:42)
[2021-03-12] MEDS ORDERED: CYCL10TA9 PO (23:42)
[2021-03-12] MEDS ORDERED: RX-ONDANSETRON 4 MG ODT (ZOFRAN) PPK #4 PO STA (23:44)
[2021-03-12] MEDS ORDERED: KETOROLAC 60 MG/2 ML VIAL IM ONE (23:45)
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
[2021-03-13] MEDS ORDERED: LORazepam 0.5 MG (ATIVAN) TABLET PO STA (00:22)
--- NOTE | 2021-03-13 08:00 | Diagnostic Imaging Report ---
EXAMINATION: Left knee at 1154 PM INDICATION: Knee pain 3 views were obtained. There are no prior studies available for comparison. There is no fracture, dislocation or acute bony abnormality evident. The knee joint itself is fairly well-maintained. There is perhaps mild narrowing of the medial compartment of the patellofemoral space. The soft tissues are unremarkable. IMPRESSION: There is no evidence for an acute bony abnormality. Dictated by: Dictated on workstation # [id number]
== END 2021-03-13 00:26 | disposition home or self-care (01) ==
LOC: EDUNIT# 23:20 → ER 23:23
DX: S06.0X0A Concussion without loss of consciousness, initial encounter (principal); S00.83XA Contusion of other part of head, initial encounter; S80.212A Abrasion, left knee, initial encounter; E66.9 Obesity, unspecified; J45.909 Unspecified asthma, uncomplicated; E03.9 Hypothyroidism, unspecified; R40.2410 Glasgow coma scale score 13-15, unspecified time; Z72.0 Tobacco use; Z68.36 Body mass index [BMI] 36.0-36.9, adult; Z79.890 Hormone replacement therapy; Y04.2XXA Assault by strike against or bumped into by another person, initial encounter
CPT/HCPCS: 70450; 72125; 73562; 96372

== ENCOUNTER 2021-05-12 02:24 | Emergency (ER) | payer MEDICAID ==
[~2021-05-12] VITALS: Ht 175 cm; Wt 122.0 kg
[~2021-05-12 02:24] MED LIST changes: +ATOR20TA66; +CYCL10TA25 PO; -CYCL10TA9 PO; +ETON1VAG8; +LEVO200T62; +ONDA4TAB11 PO
[2021-05-12] MEDS ORDERED: KETOROLAC 30 MG/ML VIAL IVP STA (03:14)
[2021-05-12] MEDS ORDERED: ORPHENADRINE 60 MG/2 ML (NORFLEX) AMP (ED ONLY) IV STA (03:14)
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
[2021-05-12] MEDS ORDERED: CYCL10TA25 PO (04:26)
--- NOTE | 2021-05-12 04:30 | Diagnostic Imaging Report ---
PROCEDURE: CT head without contrast. TECHNIQUE: Multiple contiguous axial images were obtained through the brain without the use of intravenous contrast. Auto Exposure Controls were utilized during the CT exam to meet ALARA standards for radiation dose reduction. INDICATION: Head injury with pain COMPARISON: 03/12/2021 CT HEAD: CT images of the head were obtained. FINDINGS: Ventricles and sulci are within normal limits for size. There is no intracranial hemorrhage identified. There is no abnormal mass effect or shift of midline structures. IMPRESSION: Unremarkable CT of the head. Dictated by: Dictated on workstation # [id number]
[2021-05-12 04:43] VITALS: BP 139/83
== END 2021-05-12 05:00 | disposition home or self-care (01) ==
LOC: EDUNIT# 02:24 → ER 02:28
DX: S16.1XXA Strain of muscle, fascia and tendon at neck level, initial encounter (principal); S09.90XA Unspecified injury of head, initial encounter; J45.909 Unspecified asthma, uncomplicated; E03.9 Hypothyroidism, unspecified; F17.210 Nicotine dependence, cigarettes, uncomplicated; Z79.890 Hormone replacement therapy; Z79.899 Other long term (current) drug therapy; W22.8XXA Striking against or struck by other objects, initial encounter
CPT/HCPCS: 70450; 84703

== ENCOUNTER 2021-05-15 00:31 | Emergency (ER) | payer MEDICAID ==
[~2021-05-15] VITALS: Ht 172.7 cm; Wt 122.5 kg
[2021-05-15] MEDS ORDERED: LACTATED RINGERS 1,000 ML IV ONE (00:45)
[2021-05-15] MEDS ORDERED: ONDANSETRON 4 MG/2 ML (SDV) Z0FRAN IVP ONE (00:45)
--- NOTE | 2021-05-15 00:47 | ED GI ---
General Stated Complaint: HEADACHE VOMITING/DIARRHEA DIZZY Source of Information: Patient Exam Limitations: No Limitations History of Present Illness Date Seen by Provider: May 15, 2021 Time Seen by Provider: 00:34 Initial Comments Patient ER by private conveyance for chief complaint of 1 day of nausea vomiting diarrhea poor effect from her Zofran which she vomited 10 minutes later. She follows with [facility]. She has couple C-sections but no other surgeries or scopes. She is had some subjective fevers and chills as well as sweats. No sick contacts. She denies IBS or IBD Allergies and Home Medications Allergies Coded Allergies: No Known Drug Allergies (Unverified , 10/21/19) Patient Home Medication List Home Medication List Reviewed: Yes Atorvastatin Calcium (Atorvastatin Calcium) 20 Mg Tablet, (Reported) Entered as Reported by: JAN RODRIGUEZ on 03/12/212329 Cyclobenzaprine HCl (Cyclobenzaprine HCl) 10 Mg Tablet, 10 MG PO Q8H PRN for SPASMS Prescribed by: AL ZEE on 03/12/212341 Cyclobenzaprine HCl (Cyclobenzaprine HCl) 10 Mg Tablet, 10 MG PO Q8H PRN for SPASMS Prescribed by: DINESH BORREGO on 05/12/21 0426 Etonogestrel/Ethinyl Estradiol (Eluryng Vaginal Ring) 1 Each Vag.ring, (Reported) Entered as Reported by: JAN RODRIGUEZ on 03/12/212329 Levothyroxine Sodium (Euthyrox) 200 Mcg Tablet, (Reported) Entered as Reported by: JAN RODRIGUEZ on 03/12/212329 Ondansetron (Ondansetron Odt) 4 Mg Tab.rapdis, 4 MG PO Q6H PRN for NAUSEA/VOMITING Prescribed by: AL ZEE on 03/12/21 2342 Review of Systems Review of Systems Constitutional: chills, diaphoresis, dizziness, fever, malaise EENTM: No Blurred Vision, No Double Vision Respiratory: Denies Cough, Denies Orthopnea Cardiovascular: Denies Chest Pain, Denies Edema Gastrointestinal: Denies Abdomen Distended, Denies Abdominal Pain, Denies Diarrhea, Denies Nausea Genitourinary: Denies Burning, Denies Discharge Musculoskeletal: No back pain, No joint pain All Other Systems Reviewed Negative Unless Noted: Yes Past Owzrpaa-Utjohv-Elllxz Hx Patient Social History Use of E-Cig and/or Vaping dev: No Substance use?: No Immunizations Up To Date Tetanus Booster (TDap): Less than 5yrs PED Vaccines UTD: Yes First/Initial COVID19 Vaccinat: n/a Seasonal Allergies Seasonal Allergies: No Past Medical History Surgery/Hospitalization HX: HYPOTHRYOID,ASTHMA,ANXIETY, HTN, Surgeries: Yes ( X 2) Section, Gallbladder Respiratory: Yes Asthma Cardiac: No Neurological: No Reproductive Disorders: No Genitourinary: No Gastrointestinal: Yes (S/P CHOLECYSTECTOMY) Gall Bladder Disease Musculoskeletal: No Endocrine: Yes (QUIT TAKING THYROID MEDICATIONS "A WHILE BACK" ) Hypothyroidsim HEENT: No Cancer: No Psychosocial: Yes Anxiety Integumentary: No Blood Disorders: No Adverse Reaction/Blood Tranf: No Physical Exam Vital Signs Vital Signs - First Documented 05/15/21 00:37 Temp 35.7 Pulse 84 Resp 17 B/P (MAP) 113/97 (102) O2 Delivery Room Air Capillary Refill : Height/Weight/BMI Height: 5'8.00" Weight: 229lbs. oz. 103.178418vg; 39.00 BMI Method: General Appearance: mild distress, obese HEENT: PERRL/EOMI; No pharynx normal (Dry oral) Neck: non-tender, full range of motion Respiratory: lungs clear, normal breath sounds, no respiratory distress, no accessory muscle use Cardiovascular: normal peripheral pulses, regular rate, rhythm Peripheral Pulses: 2+ Radial Pulses (R), 2+ Radial Pulses (L) Gastrointestinal: normal bowel sounds, non tender, soft, no organomegaly Extremities: non-tender, normal inspection, normal capillary refill Neurologic/Psychiatric: alert, normal mood/affect, oriented x 3 Progress/Results/Core Measures Results/Orders Lab Results Laboratory Tests Test 05/15/21 00:46 Range/Units White Blood Count 10.2 4.3-11.0 10^3/uL Red Blood Count 5.14 H 3.80-5.11 10^6/uL Hemoglobin 14.9 11.5-16.0 g/dL Hematocrit 45 35-52 % Mean Corpuscular Volume 88 80-99 fL Mean Corpuscular Hemoglobin 29 25-34 pg Mean Corpuscular Hemoglobin Concent 33 32-36 g/dL Red Cell Distribution Width 12.6 10.0-14.5 % Platelet Count 279 130-400 10^3/uL Mean Platelet Volume 10.9 9.0-12.2 fL Immature Granulocyte % (Auto) 0 % Neutrophils (%) (Auto) 70 42-75 % Lymphocytes (%) (Auto) 21 12-44 % Monocytes (%) (Auto) 7 0-12 % Eosinophils (%) (Auto) 2 0-10 % Basophils (%) (Auto) 1 0-10 % Neutrophils # (Auto) 7.1 1.8-7.8 10^3/uL Lymphocytes # (Auto) 2.1 1.0-4.0 10^3/uL Monocytes # (Auto) 0.7 0.0-1.0 10^3/uL Eosinophils # (Auto) 0.2 0.0-0.3 10^3/uL Basophils # (Auto) 0.1 0.0-0.1 10^3/uL Immature Granulocyte # (Auto) 0.0 0.0-0.1 10^3/uL Sodium Level 139 135-145 MMOL/L Potassium Level 3.7 3.6-5.0 MMOL/L Chloride Level 104 98-107 MMOL/L Carbon Dioxide Level 23 21-32 MMOL/L Anion Gap 12 5-14 MMOL/L Blood Urea Nitrogen 12 7-18 MG/DL Creatinine 0.83 0.60-1.30 MG/DL Estimat Glomerular Filtration Rate 82 BUN/Creatinine Ratio 14 Glucose Level 103 70-105 MG/DL Calcium Level 9.4 8.5-10.1 MG/DL Corrected Calcium 9.1 8.5-10.1 MG/DL Magnesium Level 1.9 1.6-2.4 MG/DL Total Bilirubin 0.4 0.1-1.0 MG/DL Aspartate Amino Transf (AST/SGOT) 14 5-34 U/L Alanine Aminotransferase (ALT/SGPT) 28 0-55 U/L Alkaline Phosphatase 83 40-136 U/L C-Reactive Protein High Sensitivity 0.46 0.00-0.50 MG/DL Total Protein 8.0 6.4-8.2 GM/DL Albumin 4.4 3.2-4.5 GM/DL Lipase 12 8-78 U/L Serum Test, Qualitative NEGATIVE NEGATIVE My Orders Orders - AL ZEE Ed Iv/Invasive Line Start (05/15/21 00:42) Lactated Ringers (Lr 1000 Ml Iv Solution (05/15/21 00:45) Ondansetron Injection (Zofran Injectio (05/15/21 00:45) Cbc With Automated Diff (05/15/21 00:42) Comprehensive Metabolic Panel (05/15/21 00:42) Hs C Reactive Protein (05/15/21 00:42) Magnesium (05/15/21 00:42) Lipase (05/15/21 00:42) Hcg,Qualitative Serum (05/15/21 00:42) Ketorolac Injection (Toradol Injection) (05/15/21 01:00) Pantoprazole Injection (Protonix Injecti (05/15/21 01:00) Medications Given in ED Current Medications Medications Dose Ordered Sig/Domenico Route Start Time Stop Time Status Last Admin Dose Admin Ketorolac Tromethamine 30 mg ONCE ONCE IVP 05/15/21 01:00 05/15/21 01:01 DC 05/15/21 00:56 30 MG Lactated Ringer's 1,000 ml @ 0 mls/hr Q0M ONCE IV 05/15/21 00:45 05/15/21 00:46 DC 05/15/21 00:56 0 MLS/HR Ondansetron HCl 8 mg ONCE ONCE IVP 05/15/21 00:45 05/15/21 00:46 DC 05/15/21 00:56 8 MG Pantoprazole 40 mg ONCE ONCE IV 05/15/21 01:00 05/15/21 01:01 DC 05/15/21 00:56 40 MG Vital Signs/I&O 05/15/21 05/15/21 00:37 00:56 Temp 35.7 35.7 Pulse 84 Resp 17 B/P (MAP) 113/97 (102) O2 Delivery Room Air Progress Progress Note #1: Time: 00:51 Progress Note Liter of fluids and labs. Appears to be gastroenteritis likely viral. Progress Note #2: Time: 01:17 Progress Note The patient's head still hurts however her nausea is improving. She is had no diarrhea since has been here. Her labs were reviewed with her and unremarkable. We'll send some prescription to the pharmacy for her Departure Impression Primary Impression: Gastroenteritis and colitis, viral Disposition: 01 HOME, SELF-CARE Condition: Stable Departure-Patient Inst. Decision time for Depature: 01:19 Referrals: [facility] (PCP/Family) Primary Care Physician Patient Instructions: Viral Gastroenteritis, Adult (DC), Diarrhea, Adult ED Add. Discharge Instructions: Zofran 1 to 2 tablets every 6 hours under the tongue as necessary for nausea or vomiting. Phenergan 1 tablet every 6 hours as necessary for breakthrough nausea. Imodium 2 tablets after loose, watery diarrhea. 1 tablet every 4 hours afterwards that you have another loose, watery stool. Scripts Prochlorperazine Maleate (Compazine) 10 Mg Tablet 10 MG PO Q8H PRN for NAUSEA/VOMITING-2ND LINE, #8 TAB 0 Refills Prov: AL ZEE 05/15/21 Ondansetron (Ondansetron Odt) 4 Mg Tab.rapdis 4-8 MG PO Q6H PRN for NAUSEA/VOMITING, #12 TAB 0 Refills Prov: AL ZEE 05/15/21 Work/School Note: Work Release Form Date Seen in the Emergency Department: May 15, 2021 Return to Work: May 17, 2021 Restrictions: No Restrictions AL ZEE May 15, 2021 00:47
[2021-05-15 00:53] LABS: BASOPHILS # (AUTO) 0.1 10^3/uL (0.0-0.1); BASOPHILS % (AUTO) 1 % (0-10); EOSINOPHILS # (AUTO) 0.2 10^3/uL (0.0-0.3); EOSINOPHILS % (AUTO) 2 % (0-10); HEMATOCRIT 45 % (35-52); HEMOGLOBIN 14.9 g/dL (11.5-16.0); LYMPHOCYTES # (AUTO) 2.1 10^3/uL (1.0-4.0); LYMPHOCYTES % (AUTO) 21 % (12-44); MEAN CORPUSCULAR HEMOGLOBIN 29 pg (25-34); MEAN CORPUSCULAR HGB CONC 33 g/dL (32-36); MEAN CORPUSCULAR VOLUME 88 fL (80-99); MEAN PLATELET VOLUME 10.9 fL (9.0-12.2); MONOCYTES # (AUTO) 0.7 10^3/uL (0.0-1.0); MONOCYTES % (AUTO) 7 % (0-12); NEUTROPHILS # (AUTO) 7.1 10^3/uL (1.8-7.8); NEUTROPHILS % (AUTO) 70 % (42-75); PLATELET COUNT 279 10^3/uL (130-400); WHITE BLOOD COUNT 10.2 10^3/uL (4.3-11.0)
[2021-05-15] MEDS ORDERED: KETOROLAC 30 MG/ML VIAL IVP ONE (01:00)
[2021-05-15] MEDS ORDERED: PANTOPRAZOLE 40 MG (PROTONIX) VIAL IV ONE (01:00)
[2021-05-15 01:03] LABS: ALBUMIN 4.4 GM/DL (3.2-4.5); POTASSIUM 3.7 MMOL/L (3.6-5.0)
[2021-05-15 01:05] LABS: CALCIUM 9.4 MG/DL (8.5-10.1)
[2021-05-15 01:08] LABS: BILIRUBIN,TOTAL 0.4 MG/DL (0.1-1.0)
[2021-05-15 01:09] LABS: CREATININE SERUM 0.83 MG/DL (0.60-1.30)
[2021-05-15 01:12] LABS: MAGNESIUM 1.9 MG/DL (1.6-2.4)
[2021-05-15] MEDS ORDERED: ONDA4TAB11 PO (01:19)
[2021-05-15] MEDS ORDERED: PROC-1 PO (01:19)
[2021-05-15] MEDS ORDERED: diphenhydrAMINE 50 MG/ML INJ (BENADRYL) IVP ONE (01:30)
[2021-05-15] MEDS ORDERED: PROCHLORPERAZINE 10 MG/2ML INJ (COMPAZINE) IV ONE (01:30)
[2021-05-15 01:49] VITALS: BP 142/78
== END 2021-05-15 01:49 | disposition home or self-care (01) ==
LOC: EDUNIT# 00:31 → ER 00:34
DX: A08.4 Viral intestinal infection, unspecified (principal); J45.909 Unspecified asthma, uncomplicated; I10 Essential (primary) hypertension; E03.9 Hypothyroidism, unspecified; E66.9 Obesity, unspecified; Z32.02 Encounter for pregnancy test, result negative; Z68.39 Body mass index [BMI] 39.0-39.9, adult; Z79.890 Hormone replacement therapy
CPT/HCPCS: 36415; 80053; 83690; 83735; 84703; 85025; 86141; 96374; 96375

== ENCOUNTER 2021-08-09 10:24 | Emergency (ER) | payer MEDICAID ==
[~2021-08-09] VITALS: Ht 172 cm; Wt 113.0 kg
[~2021-08-09 10:24] MED LIST changes: +PROC-1 PO
--- NOTE | 2021-08-09 10:39 | ED Lower Extremity ---
General Stated Complaint: L ANKLE PAIN / INJ Source: patient Exam Limitations: no limitations History of Present Illness Date Seen by Provider: Aug 09, 2021 Time Seen by Provider: 10:37 Initial Comments To ER by private vehicle with reports of left lateral ankle pain and swelling that began last night after she rolled the ankle inwards during a game of bask etball. She has been able to bear some weight on it. Onset: yesterday Severity: moderate Pain/Injury Location: left ankle Method of Injury: twisted Modifying Factors: Worse With Movement Allergies and Home Medications Allergies Coded Allergies: No Known Drug Allergies (Unverified , 10/21/19) Patient Home Medication List Home Medication List Reviewed: Yes Atorvastatin Calcium (Atorvastatin Calcium) 20 Mg Tablet, (Reported) Entered as Reported by: JAN RODRIGUEZ on 03/12/212329 Cyclobenzaprine HCl (Cyclobenzaprine HCl) 10 Mg Tablet, 10 MG PO Q8H PRN for SPASMS Prescribed by: AL ZEE on 03/12/212341 Cyclobenzaprine HCl (Cyclobenzaprine HCl) 10 Mg Tablet, 10 MG PO Q8H PRN for SPASMS Prescribed by: DINESH BORREGO on 05/12/21 0426 Etonogestrel/Ethinyl Estradiol (Eluryng Vaginal Ring) 1 Each Vag.ring, (Re ported) Entered as Reported by: JAN RODRIGUEZ on 03/12/212329 Levothyroxine Sodium (Euthyrox) 200 Mcg Tablet, (Reported) Entered as Reported by: JAN RODRIGUEZ on 03/12/212329 Ondansetron (Ondansetron Odt) 4 Mg Tab.rapdis, 4 MG PO Q6H PRN for NAUSEA/VOMITING Prescribed by: AL ZEE on 03/12/212341 Ondansetron (Ondansetron Odt) 4 Mg Tab.rapdis, 4-8 MG PO Q6H PRN for NAUSEA/VOMITING Prescribed by: AL ZEE on 05/15/21 011 Prochlorperazine Maleate (Compazine) 10 Mg Tablet, 10 MG PO Q8H PRN for N AUSEA/VOMITING-2ND LINE Prescribed by: AL ZEE on 05/15/21118 Review of Systems Constitutional: see HPI EENTM: see HPI Respiratory: no symptoms reported Cardiovascular: no symptoms reported Genitourinary: no symptoms reported Musculoskeletal: see HPI Skin: no symptoms reported Psychiatric/Neurological: No Symptoms Reported Past Vwkqqgn-Tgfezz-Txdtdj Hx Immunizations Up To Date Tetanus Booster (TDap): Less than 5yrs PED Vaccines UTD: Yes First/Initial COVID19 Vaccinat: n/a Seasonal Allergies Seasonal Allergies: No Past Medical History Surgery/Hospitalization HX: HYPOTHRYOID,ASTHMA,ANXIETY, HTN, Surgeries: Yes ( X 2) Section, Gallbladder Respiratory: Yes Asthma Cardiac: No Neurological: No Reproductive Disorders: No Genitourinary: No Gastrointestinal: Yes (S/P CHOLECYSTECTOMY) Gall Bladder Disease Musculoskeletal: No Endocrine: Yes (QUIT TAKING THYROID MEDICATIONS "A WHILE BACK" ) Hypothyroidsim HEENT: No Cancer: No Psychosocial: Yes Anxiety Integumentary: No Blood Disorders: No Adverse Reaction/Blood Tranf: No Physical Exam Vital Signs Capillary Refill : Height, Weight, BMI Height: 5'8.00" Weight: 229lbs. oz. 103.091176ws; 41.00 BMI Method: General Appearance: WD/WN, no apparent distress Neck: non-tender, full range of motion Respiratory: no respiratory distress, no accessory muscle use Hips: bilateral hip non-tender, bilateral hip normal inspection, bilateral hip normal range of motion Legs: bilateral leg non-tender, bilateral leg normal inspection, bilateral leg normal range of motion Knees: bilateral knee non-tender, bilateral knee normal inspection, bilateral knee normal range of motion Ankles: left ankle pain, left ankle soft tissue tenderness, left ankle swelling, left ankle other (Pain soft tissue tenderness and swelling over the lateral malleolus. Dorsalis pedis pulse is +2. The medial malleolus is nontender in the proximal metatarsals including the fifth metatarsal is nontender.) Neurologic/Psychiatric: alert, normal mood/affect, oriented x 3 Skin: normal color, warm/dry Progress/Results/Core Measures Results/Orders My Orders Orders - HOLLY CURTIS APRN Ankle, Left, 3 Views (08/09/21 10:36) Crutches (08/09/21 10:36) Departure Impression Primary Impression: Ankle sprain Disposition: 01 HOME, SELF-CARE Condition: Stable Departure-Patient Inst. Decision time for Depature: 10:38 Referrals: [facility] (PCP/Family) Primary Care Physician Patient Instructions: Ankle Sprain Add. Discharge Instructions: 1. Use an ice pack over the area for 30 minutes at a time every couple of hours for a few days. Take Tylenol and ibuprofen for pain control. Keep the foot elevated. Use crutches as long as it hurts to put weight on it. Whenever you can put weight on it without significant pain then you can stop using the crutches. Work/School Note: Work Release Form Date Seen in the Emergency Department: Aug 09, 2021 Return to Work: Aug 11, 2021 HOLLY CURTIS APRN Aug 09, 2021 10:39
[2021-08-09] MEDS ORDERED: HYDROcodone/APAP 5 MG/325 MG (LORTAB) TAB PO ONE (11:00)
--- NOTE | 2021-08-09 11:01 | Diagnostic Imaging Report ---
INDICATION: Left ankle pain post injury. TECHNIQUE: AP, oblique, and lateral views of the left ankle are obtained. FINDINGS: No acute fracture or acute bony abnormality is seen. There is soft tissue swelling. There is a calcification adjacent to the navicular at the talonavicular joint, which has a well-corticated appearance and is likely chronic. IMPRESSION: No acute bony abnormality of the left ankle. Dictated by: Dictated on workstation # [id number]
[2021-08-09 11:22] VITALS: BP 149/107
== END 2021-08-09 11:24 | disposition home or self-care (01) ==
LOC: EDUNIT# 10:24 → ER 10:26
DX: S93.402A Sprain of unspecified ligament of left ankle, initial encounter (principal); X50.1XXA Overexertion from prolonged static or awkward postures, initial encounter
CPT/HCPCS: 73610

== ENCOUNTER 2022-03-01 16:15 | Emergency (ER) | payer MEDICAID ==
[~2022-03-01] VITALS: Ht 172 cm; Wt 125.7 kg
[2022-03-01 17:15] LABS: BILIRUBIN,URINE NEGATIVE (NEGATIVE); CLARITY,URINE CLEAR; COLOR,URINE YELLOW; GLUCOSE, URINE (UA) NEGATIVE (NEGATIVE); KETONES,URINE NEGATIVE (NEGATIVE); LEUKOCYTE ESTERASE ,URINE NEGATIVE (NEGATIVE); NITRITE,URINE NEGATIVE (NEGATIVE); PROTEIN,URINE NEGATIVE (NEGATIVE)
[2022-03-01 17:31] LABS: AMORPHOUS SEDIMENT,UR FEW AMOR URATES /LPF; BACTERIA,URINE NEGATIVE /HPF
--- NOTE | 2022-03-01 19:22 | Diagnostic Imaging Report ---
PATIENT HISTORY: SOA. TECHNIQUE: Single frontal view of the chest. COMPARISON: None FINDINGS: The lung volumes are normal. No focal consolidation is seen. No large pleural effusion or pneumothorax is seen. The cardiomediastinal silhouette is normal in size and contour. No acute osseous abnormality is seen. IMPRESSION: No acute pulmonary abnormality seen. Dictated by: Dictated on workstation # [id number]
[2022-03-01] MEDS ORDERED: RX-ALBUTEROL INHALER 8.5 GM HFA (PROAIR) IH STA (19:33)
[2022-03-01] MEDS ORDERED: AZIT250T12 PO (19:38)
--- NOTE | 2022-03-01 19:38 | ED Cough/URI ---
General Chief Complaint: COVID19 Suspect/Confirmed Stated Complaint: CHEST PAIN - SOA - COUGH - CONGESTION Nursing Triage Note: COMPLAINS OF COUGH, SORE THROAT, AND BURING IN CHEST WITH COUGH STARTING ON SUNDAY. Source: patient Exam Limitations: no limitations History of Present Illness Date Seen by Provider: Mar 01, 2022 Time Seen by Provider: 19:34 Allergies and Home Medications Allergies Coded Allergies: No Known Drug Allergies (Unverified , 10/21/19) Patient Home Medication List Atorvastatin Calcium (Atorvastatin Calcium) 20 Mg Tablet, (Reported) Entered as Reported by: JAN RODRIGUEZ on 03/12/212329 Cyclobenzaprine HCl (Cyclobenzaprine HCl) 10 Mg Tablet, 10 MG PO Q8H PRN for SPASMS Prescribed by: AL ZEE on 03/12/212341 Cyclobenzaprine HCl (Cyclobenzaprine HCl) 10 Mg Tablet, 10 MG PO Q8H PRN for SPASMS Prescribed by: DINESH BORREGO on 05/12/21 0426 Etonogestrel/Ethinyl Estradiol (Eluryng Vaginal Ring) 1 Each Vag.ring, (Reported) Entered as Reported by: JAN RODRIGUEZ on 03/12/212329 Levothyroxine Sodium (Euthyrox) 200 Mcg Tablet, (Reported) Entered as Reported by: JAN RODRIGUEZ on 03/12/212329 Ondansetron (Ondansetron Odt) 4 Mg Tab.rapdis, 4 MG PO Q6H PRN for NAUSEA/VOMITING Prescribed by: AL ZEE on 03/12/212341 Ondansetron (Ondansetron Odt) 4 Mg Tab.rapdis, 4-8 MG PO Q6H PRN for NAUSEA/VOMITING Prescribed by: AL ZEE on 05/15/21118 Prochlorperazine Maleate (Compazine) 10 Mg Tablet, 10 MG PO Q8H PRN for NAUSEA/VOMITING-2ND LINE Prescribed by: AL ZEE on 05/15/21118 Past Bdhgrtd-Gsbhbm-Qaikcx Hx Patient Social History Tobacco Use?: Yes Smokeless Tobacco Frequency: Current Everyday User Substance use?: No Alcohol Use?: Yes Alcohol Frequency: Once in a while Immunizations Up To Date Tetanus Booster (TDap): Less than 5yrs PED Vaccines UTD: Yes First/Initial COVID19 Vaccinat: n/a Second COVID19 Vaccination Esvin: n/a Third COVID19 Vaccination Date: n/a Seasonal Allergies Seasonal Allergies: No Past Medical History Surgery/Hospitalization HX: HYPOTHRYOID,ASTHMA,ANXIETY, HTN, Surgeries: Yes ( X 2) Section, Gallbladder Respiratory: Yes Asthma Cardiac: No Neurological: No Reproductive Disorders: No Genitourinary: No Gastrointestinal: Yes (S/P CHOLECYSTECTOMY) Gall Bladder Disease Musculoskeletal: No Endocrine: Yes (QUIT TAKING THYROID MEDICATIONS "A WHILE BACK" ) Hypothyroidsim HEENT: No Cancer: No Psychosocial: Yes Anxiety Integumentary: No Blood Disorders: No Adverse Reaction/Blood Tranf: No Physical Exam Vital Signs - First Documented 03/01/22 16:20 Temp 37.0 Pulse 95 Resp 16 B/P (MAP) 131/85 (100) Pulse Ox 97 O2 Delivery Room Air Capillary Refill : Less Than 3 Seconds Height: 5'8.00" Weight: 229lbs. oz. 103.396814km; 42.00 BMI Method: Progress/Results/Core Measures Suspected Sepsis SIRS Temperature: Pulse: 95 Respiratory Rate: 16 Blood Pressure 131 /85 Mean: 100 Results/Orders Lab Results Laboratory Tests Test 03/01/22 16:23 03/01/22 16:43 Range/Units Influenza Type A (RT-PCR) Not Detected Not Detecte Influenza Type B (RT-PCR) Not Detected Not Detecte SARS-CoV-2 RNA (RT-PCR) Not Detected Not Detecte Urine Color YELLOW Urine Clarity CLEAR Urine pH 6.0 5-9 Urine Specific [place] 1.015 L 1.016-1.022 Urine Protein NEGATIVE NEGATIVE Urine Glucose (UA) NEGATIVE NEGATIVE Urine Ketones NEGATIVE NEGATIVE Urine Nitrite NEGATIVE NEGATIVE Urine Bilirubin NEGATIVE NEGATIVE Urine Urobilinogen 0.2 < = 1.0 MG/DL Urine Leukocyte Esterase NEGATIVE NEGATIVE Urine RBC (Auto) NEGATIVE NEGATIVE Urine RBC NONE /HPF Urine WBC NONE /HPF Urine Crystals PRESENT H /LPF Urine Amorphous Sediment FEW BEA URATES H /LPF Urine Bacteria NEGATIVE /HPF Urine Casts NONE /LPF Urine Mucus SMALL H /LPF Urine Culture Indicated NO My Orders Orders - STEVEN GAO APRN Covid 19 Inhouse Test (03/01/22 17:08) Influenza A And B By Pcr (03/01/22 17:08) Ua Culture If Indicated (03/01/22 17:10) Urine Bedside (03/01/22 17:10) Chest 1 View, Ap/Pa Only (03/01/22 19:01) Azithromycin Tablet (Zithromax Tablet) (03/01/22 19:45) Vital Signs/I&O 03/01/22 16:20 Temp 37.0 Pulse 95 Resp 16 B/P (MAP) 131/85 (100) Pulse Ox 97 O2 Delivery Room Air Capillary Refill : Less Than 3 Seconds Blood Pressure Mean: 100 Departure Impression Primary Impression: Bronchitis Disposition: 01 HOME, SELF-CARE Condition: Stable Departure-Patient Inst. Decision time for Depature: 19:34 Referrals: [facility] (PCP/Family) Primary Care Physician Patient Instructions: Acute Bronchitis Add. Discharge Instructions: Plan: 1. Use Albuterol 2 puffs every 4 hours as needed for shortness of breath. 2. Take Azithromycin 250mg by mouth daily for 4 days. 3. Drink plenty of fluids. 4. Follow up with your doctor if your symptoms persist. 5. Return for any new, concerning, or worsening symptoms. All discharge instructions reviewed with patient and/or family. Voiced under standing. Scripts Azithromycin (Azithromycin) 250 Mg Tablet 250 MG PO DAILY for 4 Days, #4 TAB 0 Refills Prov: STEVEN GAO RETAIL SHIFT LEADER 03/01/22 STEVEN GAO RETAIL SHIFT LEADER Mar 01, 2022 19:38
[2022-03-01] MEDS ORDERED: methylPREDNISolone 80 MG/ML (DEPO MEDROL) VIAL IM ONE (19:45)
[2022-03-01] MEDS ORDERED: AZITHROMYCIN 250 MG TAB (ZITHROMAX) PO ONE (19:45)
[2022-03-01 19:56] VITALS: BP 101/84
== END 2022-03-01 19:56 | disposition home or self-care (01) ==
LOC: EDUNIT# 16:15 → ER 16:17
DX: J45.909 Unspecified asthma, uncomplicated (principal); F17.200 Nicotine dependence, unspecified, uncomplicated; Z20.822 Contact with and (suspected) exposure to COVID-19; Z28.310 Unvaccinated for COVID-19
CPT/HCPCS: 71045; 81000; 84703; 87636

== ENCOUNTER → 2022-07-14 | Outpatient (CLI) | payer MEDICAID ==
[~2022-07-14] MED LIST changes: +AZIT250T12 PO
--- NOTE | 2022-07-14 17:32 | Diagnostic Imaging Report ---
INDICATION: patient, survey TECHNIQUE: Multiple real-time grayscale images were obtained over the gravid uterus. COMPARISON: None FINDINGS: A single live intrauterine fetus is seen measuring 20 weeks 2 days in size by composite measurements. Fetus is in cephalic presentation. heart rate is 149 bpm. Amniotic fluid index is 10.9 cm. Placenta is anterior with no evidence of previa. Gestational sac has normal shape. There is no adnexal free fluid. Cervical length is 5.1 cm. Distance from the placental tip to the internal os was 6.6 cm survey demonstrated normal-appearing kidneys and bladder. stomach appeared normal. Intracranial ventricles appear normal. Four chamber heart view appeared normal. Views of the spine appear normal. Three-vessel cord and cord insertion appear unremarkable. Biometrical measurements are as follows: Biparietal 4.69 cm, age 20 weeks 2 days. Head circumference 17.82 cm, age 20 weeks 2 days. Abdominal circumference 14.70 cm, age 20 weeks 0 days. Femur length 3.34 cm, age 20 weeks 4 days. Sonographic estimate age: 20 weeks 2 days. Sonographic estimated date of delivery: 11/29/2022. Estimated Weight: 339 gm (+/- 50 gm). LMP percentile: 58%. heart rate: 149 beats per minute. number: 1 of 1. IMPRESSION: Single live intrauterine fetus measuring 20 weeks 2 days in size. There is no detectable sonographic abnormality. Dictated by: Dictated on workstation # [id number]
== END ==
LOC: RAD 13:45
PROVIDERS: ATTEND Nurse Practitioner Women's Health
DX: Z34.02 Encounter for supervision of normal first pregnancy, second trimester (principal); Z3A.20 20 weeks gestation of pregnancy
CPT/HCPCS: 76805

== ENCOUNTER 2022-10-07 23:17 | Outpatient (CLI) | payer MEDICAID ==
[~2022-10-07] VITALS: Ht 175.2 cm; Wt 143.6 kg
[2022-10-07 23:30] VITALS: BP 133/70
[2022-10-07 23:43] LABS: BILIRUBIN,URINE NEGATIVE (NEGATIVE); CLARITY,URINE CLOUDY; COLOR,URINE YELLOW; GLUCOSE, URINE (UA) NEGATIVE (NEGATIVE); KETONES,URINE NEGATIVE (NEGATIVE); LEUKOCYTE ESTERASE ,URINE TRACE (NEGATIVE); NITRITE,URINE NEGATIVE (NEGATIVE); PROTEIN,URINE NEGATIVE (NEGATIVE)
[2022-10-07 23:50] LABS: BACTERIA,URINE FEW /HPF
[2022-10-07 23:51] LABS: AMORPHOUS SEDIMENT,UR LARGE AMOR URATES /LPF
--- NOTE | 2022-10-09 08:16 | Physician Query-Final Dx ---
10/09/22 0816: Clinic Account Progress/Dx Physician Query: Please give diagnosis Please include # weeks gestation Date of Service October 07, 2022 at 23:17 MALKA RHODES DO 10/10/22 1121: Clinic Account Progress/Dx Physician Query: Date of Service 10/07/22 DIAGNOSIS: Diagnosis IUP@32wk Diarrhe Pressure Progress Note: THis 27 yo presents to L&D @ 28wk with c/o diarrhea and pressure FHT reassuring TOCOs none Labs reviewed. No labor DC to home PTL precuations Increase PO fluids. October 09, 2022 08:16 MALKA RHODES DO October 10, 2022 11:21
== END 2022-10-08 00:15 | disposition home or self-care (01) ==
LOC: WSo 23:17 → LDRP 23:18 → WSo 10-08 00:15
PROVIDERS: ATTEND Obstetrics & Gynecology
DX: O99.891 Other specified diseases and conditions complicating pregnancy (principal); R10.2 Pelvic and perineal pain; Z3A.33 33 weeks gestation of pregnancy
CPT/HCPCS: 81000; 99212

== ENCOUNTER → 2022-11-13 | Outpatient (CLI) | payer MEDICAID | LOC: LABNPT 11:01 | PROVIDERS: ATTEND Obstetrics & Gynecology | DX: O13.9 Gestational [pregnancy-induced] hypertension without significant proteinuria, unspecified trimester (principal); Z3A.00 Weeks of gestation of pregnancy not specified | CPT/HCPCS: 82570; 84156 ==

== ENCOUNTER 2022-11-16 05:27 | Outpatient (CLI) | payer MEDICAID ==
[~2022-11-16] VITALS: Ht 175.3 cm; Wt 142.7 kg
== END 2022-11-16 10:01 | disposition home or self-care (01) ==
LOC: PREOP 05:27
PROVIDERS: ATTEND Obstetrics & Gynecology
DX: Z01.818 Encounter for other preprocedural examination (principal)

== ENCOUNTER 2022-11-17 23:14 | Outpatient (CLI) | payer MEDICAID ==
[~2022-11-17] VITALS: Ht 175.2 cm; Wt 145.5 kg
[2022-11-17 23:38] LABS: BILIRUBIN,URINE NEGATIVE (NEGATIVE); CLARITY,URINE SL CLOUDY; COLOR,URINE YELLOW; GLUCOSE, URINE (UA) NEGATIVE (NEGATIVE); KETONES,URINE NEGATIVE (NEGATIVE); LEUKOCYTE ESTERASE ,URINE 1+ (NEGATIVE); NITRITE,URINE NEGATIVE (NEGATIVE); PROTEIN,URINE NEGATIVE (NEGATIVE)
[2022-11-17 23:45] VITALS: BP 122/61
[2022-11-17 23:46] LABS: BACTERIA,URINE LARGE /HPF
--- NOTE | 2022-11-18 09:20 | OB Triage Report ---
Standard Progress Note Progress Notes/Assess & Plan Date Seen by a Provider: Nov 17, 2022 Time Seen by a Provider: 23:30 Expected Date of Delivery: Dec 01, 2022 Gestational Age in Weeks: 38 Gestational Age in Days: 0 LMP/AMBER Comment: As above Progress/Assessment & Plan @ 38 weeks with recent onset headaches, new onset, comes and goes, has not taken tylenol regularly for this. Vital signs stable and normal. Category I FHR tracing and patient not in labor, no leakage of fluid or bleeding. No hx of migraines. Patient was given the option to take APAP 1,000 mg p.o. up to q6h prn h/a vs going to ED for evaluation and management of h/a and has decided to go home. Will call clinic on Sunday if h/a persists. Labor precautions. Told to return if sx worsen. Final Diagnosis 38 weeks Headache Not in labor TIAGO CONKLIN DO Nov 18, 2022 09:20
== END 2022-11-18 00:15 | disposition home or self-care (01) ==
LOC: WSo 23:14 → LDRP 23:15 → WSo 11-18 00:15
PROVIDERS: ATTEND Obstetrics & Gynecology
DX: O26.893 Other specified pregnancy related conditions, third trimester (principal); R51.9 Headache, unspecified; Z3A.38 38 weeks gestation of pregnancy
CPT/HCPCS: 81000; 87088

== ENCOUNTER 2022-11-23 05:26 | Inpatient (IN) | payer MEDICAID ==
[~2022-11-23] VITALS: Ht 175.3 cm; Wt 144.0 kg
[2022-11-23] VITALS (9 sets, daily range): BP systolic 114–140; BP diastolic 56–91
[2022-11-23] MEDS ORDERED: ceFAZolin INJECTION 2,000 MG in NS (IVPB) 50 ML IV ONE (05:30)
[2022-11-23] MEDS ORDERED: LACTATED RINGERS 1,000 ML IV PRN ×2 (05:30)
[2022-11-23] MEDS ORDERED: METOCLOPRAMIDE INJ 10 MG/2 ML (REGLAN) IV ONE (05:30)
[2022-11-23] MEDS ORDERED: FAMOTIDINE 20MG/2ML IV (PEPCID) IV ONE (05:30)
[2022-11-23] MEDS ORDERED: CATHETER FLUSH 10 ML SYR IV PRN (05:30)
[2022-11-23] MEDS ORDERED: CITRIC ACID/SOB CIT (BICITRA) 30 ML UDC PO ONE (05:30)
[2022-11-23 06:10] LABS: BASOPHILS % (AUTO) 0 % (0-10); EOSINOPHILS # (AUTO) 0.1 10^3/uL (0.0-0.3); EOSINOPHILS % (AUTO) 1 % (0-10); HEMATOCRIT 33 % (35-52); HEMOGLOBIN 10.9 g/dL (11.5-16.0); LYMPHOCYTES # (AUTO) 2.4 10^3/uL (1.0-4.0); LYMPHOCYTES % (AUTO) 22 % (12-44); MEAN CORPUSCULAR HEMOGLOBIN 28 pg (25-34); MEAN CORPUSCULAR HGB CONC 33 g/dL (32-36); MEAN CORPUSCULAR VOLUME 85 fL (80-99); MEAN PLATELET VOLUME 12.3 fL (9.0-12.2); MONOCYTES # (AUTO) 0.7 10^3/uL (0.0-1.0); MONOCYTES % (AUTO) 6 % (0-12); NEUTROPHILS # (AUTO) 7.9 10^3/uL (1.8-7.8); NEUTROPHILS % (AUTO) 70 % (42-75); PLATELET COUNT 224 10^3/uL (130-400); WHITE BLOOD COUNT 11.2 10^3/uL (4.3-11.0)
[2022-11-23 06:11] LABS: ALBUMIN 3.1 GM/DL (3.2-4.5)
[2022-11-23 06:12] LABS: POTASSIUM 3.8 MMOL/L (3.6-5.0)
[2022-11-23 06:13] LABS: CALCIUM 8.9 MG/DL (8.5-10.1)
[2022-11-23 06:14] LABS: TOTAL PROTEIN 6.7 GM/DL (6.4-8.2)
[2022-11-23 06:16] LABS: BILIRUBIN,TOTAL 0.4 MG/DL (0.1-1.0)
[2022-11-23 06:18] LABS: CREATININE SERUM 0.62 MG/DL (0.60-1.30)
[2022-11-23] MEDS ORDERED: fentaNYL INJ 100 MCG/2 ML AMP ONE (07:03)
[2022-11-23] MEDS ORDERED: ONDANSETRON 4 MG/2 ML (SDV) Z0FRAN ONE (07:03)
[2022-11-23] MEDS ORDERED: MEASLES,MUMPS,RUBELLA 1 EA INJ SC SCH (07:15)
[2022-11-23] MEDS ORDERED: TETANUS,DIPTH,PERTUSS P/F (BOOSTRIX) 0.5 ML VIAL IM SCH (07:15)
[2022-11-23] MEDS ORDERED: ONDANSETRON 4 MG/2 ML (SDV) Z0FRAN IVP PRN (07:15)
[2022-11-23] MEDS ORDERED: NALOXONE 0.4 MG/ML 1 ML (NARCAN) VIAL IV PRN (07:15)
--- NOTE | 2022-11-23 07:22 | History & Physical-OB ---
OB - Chief Complaint & HPI Date/Time Date of Admission: Date of Admission: Nov 23, 2022 at 05:26 Date seen by a Provider: Nov 23, 2022 Time Seen by a Provider: 07:05 Chief Complaint/History OB-Reason for Admission/Chief: Section Hx : 7 Hx Para: 4 Expected Date of Delivery: Dec 01, 2022 Gestational Age in Weeks: 38 Gestational Age in Days: 6 Indication for : desires repeat Admission Nurse Assessment Rev: Yes Allergies and Home Medications Allergies Coded Allergies: No Known Drug Allergies (Unverified , 11/16/22) Patient Home Medication List Home Medication List Reviewed: Yes No Active Prescriptions or Reported Meds OB - History Hx of Present Care: Yes Ultrasounds: Normal mid trimester US Obstetrical Complications: Gestational Hypertension Medical Complications: None Delivery History Adverse Rxn to Tranfusion: No Patient Past Medical History nc Social History/Family History 2nd Hand Smoke Exposure: No Immunizations First/Initial COVID19 Vaccine: n/a Second COVID19 Vaccination: n/a Third COVID19 Vaccination Date: n/a Hepatitis A: Yes Hepatitis B: Yes Tetanus Booster (TDap): Less than 5yrs OB - Admission Exam Physical Exam Vitals: Vital Signs 11/23/22 11/23/22 05:42 06:35 Temp 36.9 Pulse 74 Resp 18 B/P (MAP) 125/70 (88) Pulse Ox 98 O2 Delivery Room Air HEENT: NCAT Heart: Rhythm Normal Lungs: Clear Abdomen: Gravid Extremities: Normal Reflexes: Normal Heart Rate: 130's Accelerations: Accelerations Present Decelerations: No Decelerations Short Term Variability: Present Public Weigher Variability: Average (6-25) Contractions on Admission: >10 Minutes Apart Intensity: Mild Labs Laboratory Tests Test 11/23/22 05:45 Range/Units White Blood Count 11.2 H 4.3-11.0 10^3/uL Red Blood Count 3.89 3.80-5.11 10^6/uL Hemoglobin 10.9 L 11.5-16.0 g/dL Hematocrit 33 L 35-52 % Mean Corpuscular Volume 85 80-99 fL Mean Corpuscular Hemoglobin 28 25-34 pg Mean Corpuscular Hemoglobin Concent 33 32-36 g/dL Red Cell Distribution Width 13.9 10.0-14.5 % Platelet Count 224 130-400 10^3/uL Mean Platelet Volume 12.3 H 9.0-12.2 fL Immature Granulocyte % (Auto) 1 % Neutrophils (%) (Auto) 70 42-75 % Lymphocytes (%) (Auto) 22 12-44 % Monocytes (%) (Auto) 6 0-12 % Eosinophils (%) (Auto) 1 0-10 % Basophils (%) (Auto) 0 0-10 % Neutrophils # (Auto) 7.9 H 1.8-7.8 10^3/uL Lymphocytes # (Auto) 2.4 1.0-4.0 10^3/uL Monocytes # (Auto) 0.7 0.0-1.0 10^3/uL Eosinophils # (Auto) 0.1 0.0-0.3 10^3/uL Basophils # (Auto) 0.0 0.0-0.1 10^3/uL Immature Granulocyte # (Auto) 0.1 0.0-0.1 10^3/uL Sodium Level 135 135-145 MMOL/L Potassium Level 3.8 3.6-5.0 MMOL/L Chloride Level 108 H 98-107 MMOL/L Carbon Dioxide Level 17 L 21-32 MMOL/L Anion Gap 10 5-14 MMOL/L Blood Urea Nitrogen 5 L 7-18 MG/DL Creatinine 0.62 0.60-1.30 MG/DL Estimat Glomerular Filtration Rate 124 BUN/Creatinine Ratio 8 Glucose Level 91 70-105 MG/DL Calcium Level 8.9 8.5-10.1 MG/DL Corrected Calcium 9.6 8.5-10.1 MG/DL Total Bilirubin 0.4 0.1-1.0 MG/DL Aspartate Amino Transf (AST/SGOT) 10 5-34 U/L Alanine Aminotransferase (ALT/SGPT) 8 0-55 U/L Alkaline Phosphatase 168 H 40-136 U/L Total Protein 6.7 6.4-8.2 GM/DL Albumin 3.1 L 3.2-4.5 GM/DL OB - Assessment/Plan/Diagnosis Assessment Assessment: section Admission Dx 27 yo @ 38.6 weeks Previous GHTN GBS neg Admission Status: Inpatient Order (span 2 midnights) Reason for Inpatient Admission: RCS at term Plan Plan: Section HERMANN GIBBONS DO Nov 23, 2022 07:22
--- NOTE | 2022-11-23 07:23 | Discharge Inst-Women's Service ---
Discharge Inst-Women's Serv Depart Medication/Instructions New, Converted or Re-Newed RX: Transmitted to Pharmacy Final Diagnosis POD 2 RLTCS Problems Reviewed?: Yes Consults/Follow Up Additional Follow Up: Yes Orders/Referrals Dr. Crow in 7-10 days and in 6 weeks Activity Activity: Activity as Tolerated Driving Instructions: No Driving for 1 Week NO SMOKING: NO SMOKING Nothing Inside Vagina: No Douching, No [place], No Tampons Diet Discharge Diet: No Restrictions Symptoms to Report to : Bleeding Excessive, Pain Increased, Fever Over 101 Degrees F, Vaginal Bleeding Increase, Questions/Concerns For Any Problems or Questions: Contact Your Physician Skin/Wound Care Infection Signs and Symptoms: Increased Redness, Foul Odor of Wound, Increased Drainage, Skin Itchy or Has a Rash, Increased Swelling, Temperature Above 101 F Operative Area Clean and Dry: Keep Incision Clean/Dry Stitches/Sweetser/Dermabond: Dermabond, Care of Stitches Bathing Instructions: HERMANN Rodriguez DO Nov 23, 2022 07:23
[2022-11-23] MEDS ORDERED: IBUP-844 PO (07:24)
[2022-11-23] MEDS ORDERED: DOCU100C37 PO (07:24)
[2022-11-23] MEDS ORDERED: ACHD5005 PO (07:24)
[2022-11-23] MEDS ORDERED: KETOROLAC 30 MG/ML VIAL ONE (07:37)
[2022-11-23] MEDS: KETOROLAC 30 MG/ML VIAL IV SCH ×3 (08:08→19:35)
[2022-11-23] MEDS ORDERED: OXYTOCIN PRE-MIX DRIP 500 ML IV ONE ×2 (08:12→08:13)
[2022-11-23] MEDS: OXYTOCIN PRE-MIX DRIP 500 ML IV SCH ×2 (08:42→12:57)
[2022-11-23] MEDS: DOCUSATE SODIUM 100 MG (COLACE) CAP PO SCH ×2 (09:34→21:22)
[2022-11-23] MEDS: HYDROcodone/APAP 5 MG/325 MG (LORTAB) TAB PO PRN (10:02)
[2022-11-23] MEDS ORDERED: CATHETER FLUSH 10 ML SYR IV SCH (14:00)
--- NOTE | 2022-11-23 14:25 | OPERATIVE REPORT ---
PREOPERATIVE DIAGNOSES: 1. A 27-year-old at 38 weeks and 6 days' gestation. 2. Previous section. 3. Gestational hypertension. POSTOPERATIVE DIAGNOSES: 1. A 27-year-old at 38 weeks and 6 days' gestation. 2. Previous section. 3. Gestational hypertension. PROCEDURE: Repeat low transverse section. SURGEON: Angel Gibbons DO ANESTHESIA: Spinal. ESTIMATED BLOOD LOSS: 300 mL URINE OUTPUT: 50 mL clear at the end of the procedure. FLUIDS: 1500 mL lactated Ringer's solution. FINDINGS: A live female , weighed 8 pounds 10 ounces, Apgars of 9 and 9. Grossly normal appearing uterus, bilateral fallopian tubes and ovaries. SPECIMEN SENT: None. INDICATIONS FOR PROCEDURE: This 27-year-old female was a patient who had sought care in my office, was complicated by elevated blood pressures in the third trimester, assist the patient delivery at 38 weeks rather than 39 weeks due to gestational hypertension and risk for preeclampsia. She still wanted to wait as long as possible, so we waited till 38 weeks and 6 days' gestation. Risk of repeat were reviewed with the patient in detail and after all of her questions were answered, she was agreeable to proceed. Consent was obtained. The patient was taken to the operating room. OPERATIVE DESCRIPTION IN DETAIL: Once in the operating room, spinal analgesia was administered and found to be adequate, she was placed in supine position with leftward tilt, prepped and draped in normal sterile fashion. A timeout was performed. Anesthesia was tested. I then made a Pfannenstiel skin incision through the previously existing scar using knife and carried down to the underlying fascia using Bovie cautery. The fascial incision extended laterally using Bovie cautery. The superior aspect of fascial incision was then grasped with Wendie clamps, tented up and dissected off the underlying rectus muscles. The inferior aspect of the fascial incision was then grasped with Wendie clamps, tented up and dissected off the underlying rectus muscles. Rectus muscles were dissected down the midline bluntly, which exposes the peritoneum, which entered bluntly and extended using blunt traction. Mars ring retractor was placed in the peritoneal incision, which offers excellent lateral sidewall retraction. I identified lower uterine segment, was found to be thinned out and make a low transverse incision to the vesicouterine peritoneum and bluntly dissected this off the lower uterine segment, creating a bladder flap. I then proceeded my myotomy until membranes were visualized, at which point I extended the uterine incision laterally and superiorly using bandage scissors. Amniotomy was then performed using Allis clamp. Clear fluid was noted. The infant is found in vertex presentation. With gentle fundal pressure, the 's head was elevated up to the incision where it was delivered through the incision. The nares and oropharynx were bulb suctioned. Anterior and posterior shoulders were delivered. The infant was brought to the operative field where the cord was doubly clamped and cut and was handed off to waiting nurses in attendance. Cord blood was collected. Three-vessel cord and intact placenta was delivered spontaneously thereafter. IV Pitocin is initiated to facilitate uterine contraction. Uterine fundus confirmed by manual massage. The uterus was then exteriorized and cleared of all endometrial clots and debris. I then proceeded with closing the uterine incision using 0 Vicryl suture in a running locked fashion. Second layer of imbricating 0 Monocryl was placed. Excellent hemostasis was noted after doing this. I then placed the uterus back in the pelvis. Copiously irrigated the pelvis using normal saline. Once again, there was no active bleeding noted from any of my dissection planes. I placed Interceed antiadhesive over my low transverse incision. I removed the Mars ring retractor and then proceeded with closing the peritoneum using 3-0 Vicryl suture in a running fashion. The rectus muscles were reapproximated using 3-0 Vicryl suture in interrupted fashion. There was a small amount of bleeding in the apex of the rectus muscle and fascial dissection plane. I packed this area using Surgicel, after which hemostasis was noted. I then closed the fascia using 0 Vicryl suture in a running fashion. The subcutaneous tissue was reapproximated using 3-0 plain and interrupted subcutaneous stitch and the skin was reapproximated using 4-0 Monocryl in a running subcuticular. Dermabond was applied to incision and sterile dressing with adhesive white tape. The patient tolerated the procedure well and was taken to recovery area in stable condition. Lap and sponge counts were correct at the end of the procedure. Instrument counts correct as well. Two grams of Ancef were given preoperatively for infection prophylaxis. Job ID: [id number] DocumentID: [id number] Dictated Date: 11/23/2022 08:21:15 Platform Material Handler Manager Date: 11/23/2022 14:22:00 Dictated By: ANGEL GIBBONS DO
[2022-11-24 02:01] VITALS: BP 103/55
[2022-11-24] MEDS: KETOROLAC 30 MG/ML VIAL IV SCH (02:02)
[2022-11-24 06:16] LABS: BASOPHILS # (AUTO) 0.1 10^3/uL (0.0-0.1); BASOPHILS % (AUTO) 1 % (0-10); EOSINOPHILS # (AUTO) 0.2 10^3/uL (0.0-0.3); EOSINOPHILS % (AUTO) 2 % (0-10); HEMATOCRIT 28 % (35-52); LYMPHOCYTES # (AUTO) 2.3 10^3/uL (1.0-4.0); LYMPHOCYTES % (AUTO) 23 % (12-44); MEAN CORPUSCULAR HEMOGLOBIN 28 pg (25-34); MEAN CORPUSCULAR HGB CONC 33 g/dL (32-36); MEAN CORPUSCULAR VOLUME 87 fL (80-99); MEAN PLATELET VOLUME 12.4 fL (9.0-12.2); MONOCYTES # (AUTO) 0.8 10^3/uL (0.0-1.0); MONOCYTES % (AUTO) 8 % (0-12); NEUTROPHILS # (AUTO) 6.8 10^3/uL (1.8-7.8); NEUTROPHILS % (AUTO) 67 % (42-75); PLATELET COUNT 176 10^3/uL (130-400); WHITE BLOOD COUNT 10.2 10^3/uL (4.3-11.0)
[2022-11-24 06:30] VITALS: BP 120/53
[2022-11-24] MEDS ORDERED: FERR325T18 PO (08:10)
--- NOTE | 2022-11-24 08:10 | Postpartum Progress Note ---
Note Note Day # 1 Subjective: Patient is without complaints. Ambulating, voiding. Tolerating a regular diet without nausea or vomiting. Normal lochia. Pain is well controlled with oral pain medications. Objective: Physical Exam: General - Alert and oriented, no apparent distress Abdomen - Soft, appropriately tender to palpation, non-distended, fundus firm at umbilicus Extremities - no edema, negative Merry's bilaterally Incision- c/d/i Assessment: POD 1 RLTCS Acute blood loss anemia- asymptomatic Plan: Routine care. Encourage breast feeding. Encourage ambulation. Ferrous sulfate supplementation. Plan for discharge tomorrow Vitals - Labs Vital Signs - I&O Vital Signs Date Time Temp Pulse Resp B/P (MAP) Pulse Ox O2 Delivery O2 Flow Rate FiO2 11/24/22 06:30 35.8 66 18 120/53 (75) 98 Room Air 11/24/22 02:01 36.4 63 18 103/55 (71) 97 Room Air 11/23/22 21:22 36.0 56 18 124/56 (78) 96 Room Air 11/23/22 17:00 36.0 65 16 131/75 (93) 97 Room Air 11/23/22 11:50 36.0 77 16 114/62 (79) 97 Room Air 11/23/22 09:35 Room Air 11/23/22 09:14 Room Air 11/23/22 09:14 35.9 16 137/91 (106) 98 Room Air 11/23/22 09:00 Room Air 11/23/22 09:00 35.9 16 132/78 (96) 98 Room Air 11/23/22 08:45 35.8 16 114/71 (85) 98 Room Air 11/23/22 08:45 Room Air 11/23/22 08:30 35.9 16 116/68 (84) 99 Room Air 11/23/22 08:30 Room Air 11/23/22 08:15 Room Air 11/23/22 08:15 Room Air I & O 11/24/22 07:00 Intake Total 4670 ml Output Total 500 ml Balance 4170 ml Labs Laboratory Tests 11/24/22 05:16: White Blood Count 10.2, Red Blood Count 3.19L, Hemoglobin 9.0L, Hematocrit 28L, Mean Corpuscular Volume 87, Mean Corpuscular Hemoglobin 28, Mean Corpuscular Hemoglobin Concent 33, Red Cell Distribution Width 14.0, Platelet Count 176, Mean Platelet Volume 12.4H, Immature Granulocyte % (Auto) 1, Neutrophils (%) (Auto) 67, Lymphocytes (%) (Auto) 23, Monocytes (%) (Auto) 8, Eosinophils (%) (Auto) 2, Basophils (%) (Auto) 1, Neutrophils # (Auto) 6.8, Lymphocytes # (Auto) 2.3, Monocytes # (Auto) 0.8, Eosinophils # (Auto) 0.2, Basophils # (Auto) 0.1, Immature Granulocyte # (Auto) 0.1 HERMANN GIBBONS 23, 2023 08:10
--- NOTE | 2022-11-24 08:19 | Anesthesia-Regional Post-Op ---
Regional Patient Condition Mental Status: Alert, Oriented x3 Circulation: Same as Pre-Op Headache: Absent Sensation: Full Recovery Motor Block: Absent Post Op Complications Complications None Follow Up Care/Instructions Patient Instructions None needed. Anesthesia/Patient Condition Patient is doing well, no complaints, stable vital signs, no apparent adverse anesthesia problems. No complications reported per nursing. [place] [facility] [place] Yes TIAGO FAYE CRNA Nov 24, 2022 08:18
[2022-11-24 09:29] VITALS: BP 123/62
[2022-11-24] MEDS: IBUPROFEN 600 MG (MOTRIN) TAB PO SCH ×3 (09:29→21:02)
[2022-11-24] MEDS: DOCUSATE SODIUM 100 MG (COLACE) CAP PO SCH ×2 (09:29→21:02)
[2022-11-24] MEDS: BACITRACIN OINTMENT 28 GM TUBE TOP SCH ×2 (11:39→21:04)
[2022-11-24] MEDS: HYDROcodone/APAP 5 MG/325 MG (LORTAB) TAB PO PRN (12:57)
[2022-11-24 15:48] VITALS: BP 118/71
[2022-11-24 21:00] VITALS: BP 114/74
[2022-11-24] MEDS: SIMETHICONE 80 MG (MYLICON) CHEW PO SCH (22:06)
[2022-11-25 02:06] VITALS: BP 122/77
[2022-11-25] MEDS: IBUPROFEN 600 MG (MOTRIN) TAB PO SCH ×2 (02:06→08:00)
[2022-11-25] MEDS: DOCUSATE SODIUM 100 MG (COLACE) CAP PO SCH (07:59)
[2022-11-25 08:00] VITALS: BP 123/62
[2022-11-25] MEDS: BACITRACIN OINTMENT 28 GM TUBE TOP SCH (08:00)
--- NOTE | 2022-11-25 08:20 | Short Stay Summary ---
Discharge Summary Hospital Course Final Diagnosis: Prior , 38 weeks Hospital Course Date of Admission: Nov 23, 2022 at 05:26 Admission Diagnosis : Family Physician/Provider: [place] [place] Date of Discharge: 11/25/22 Discharge Diagnosis: [ ] Hospital Course: [ ] Labs and Pending Lab Test: Microbiology 11/23/22 MRSA Screen - Final, Complete Home Meds Active Ferrous Sulfate 325 Mg (65 Mg Iron) Tablet 325 Mg PO BID Docusate Sodium 100 Mg Capsule 100 Mg PO BID PRN Hydrocodone-Acetamin 5-325 mg (Hydrocodone/Acetaminophen) 5 Mg-325 Mg Tablet 1-2 Ea PO Q6HR PRN Ibu (Ibuprofen) 600 Mg Tablet 600 Mg PO Q6H Assessment/Pt Instructions POD #2 s/p repeat @ 38 6/7 weeks, doing well. Discharged to home with instructions. Follow up with Dr. Crow as scheduled for incision check. Discharge Instructions Discharge Diet: No Restrictions Activity as Tolerated: Yes Discharge Physical Examination General Appearance: Alert, Oriented X3, Cooperative, No Acute Distress Abdominal: Soft, No Tenderness, Other (Incision clean and dry and well approximated, no erythema.) Extremities: No Tenderness/Swelling, Other (No calf pain) Skin: No Rashes, No Significant Lesion Neuro: Normal Gait, Normal Speech, Sensation Intact Psych/Mental Status: Mental Status NL Allergies: Coded Allergies: No Known Drug Allergies (Unverified , 11/16/22) Discharge Summary Date of Admission Nov 23, 2022 at 05:26 Date of Discharge 11/25/22 Discharge Date: Nov 25, 2022 Discharge Time: 08:20 Admission Diagnosis 38 6/7 weeks Prior Consults/Procedures Procedures Repeat Discharge Diagnosis Prior 38 6/7 weeks Status post Repeat TIAGO CONKLIN DO Nov 25, 2022 08:20
[2022-11-25] MEDS: SIMETHICONE 80 MG (MYLICON) CHEW PO SCH (09:00)
[2022-11-25 10:00] VITALS: BP 123/62
== END 2022-11-25 10:00 | disposition home or self-care (01) | DRG 787 ==
LOC: LDRP 05:26
PROVIDERS: ADMIT Obstetrics & Gynecology; ATTEND Obstetrics & Gynecology
PROC: 10D00Z1 Extraction of Products of Conception, Low, Open Approach (ICD-10-PCS; principal; 2022-11-23 07:13)
DX: O34.211 Maternal care for low transverse scar from previous cesarean delivery (principal); D62 Acute posthemorrhagic anemia; Z3A.38 38 weeks gestation of pregnancy; Z37.0 Single live birth; O13.4 Gestational [pregnancy-induced] hypertension without significant proteinuria, complicating childbirth; O90.81 Anemia of the puerperium
CPT/HCPCS: 36415; 80053; 85025; 86850; 86900; 86901; 87081; 94664